=== PATIENT | female | born 1975 | race American Indian/Alaskan Native ===

== ENCOUNTER 2016-08-07 06:20 | Inpatient (IN) | payer MEDICARE ==
[2016-08-05 12:07] LABS: Basophils % (Auto) 0.4 % (0.0-1.8); Eosinophils % (Auto) 1.6 % (0.0-4.3); Hematocrit 36.8 % (30.3-42.9); Hemoglobin 12.1 gm/dl (10.1-14.3); Mean Corpuscular HGB Conc 33 % (30-34); Mean Corpuscular Hemoglobin 28 pg (28-32); Mean Corpuscular Volume 84 fl (79-97); Platelet Count 359 K/mm3 (140-440); Red Blood Count 4.39 M/mm3 (3.65-5.03); Red Cell Distribution Width 12.6 % (13.2-15.2); White Blood Count 7.1 K/mm3 (4.5-11.0)
[2016-08-05 12:17] LABS: INR 0.88 (0.87-1.13); Partial Thromboplastin Time 32.6 Sec. (24.2-36.6)
--- NOTE | 2016-08-05 12:23 | Anesthesia Consultation ---
Anesthesia Consult and Med Hx Date of service: 08/07/16 - Airway Anesthetic Teeth Evaluation: Good ROM Head & Neck: Adequate Mental/Hyoid Distance: Adequate Mallampati Class: Class II Intubation Access Assessment: Probably Good - Pulmonary Exam CTA: Yes - Cardiac Exam Cardiac Exam: RRR - Pre-Operative Health Status ASA Pre-Surgery Classification: ASA3 Proposed Anesthetic Plan: General - Cardiovascular System Hx Hypertension: Yes (x 12 yrs) - Central Nervous System Hx Psychiatric Problems: No - Endocrine Hx Liver Disease: Yes (H/O Hep A with elevated liver enzymes) Hx Insulin Dependent Diabetes: Yes - Hematic Hx Anemia: Yes (past hx) - Other Systems Hx Alcohol Use: Yes (occas) Hx Cancer: No Hx Obesity: Yes - Additional Comments Anesthesia Medical History Comments: Patient does not want TAP block
[2016-08-05 13:01] LABS: Alanine Aminotransferase 8 units/L (7-56); Albumin 3.5 g/dL (3.9-5); Albumin/Globulin Ratio 0.9 %; Alkaline Phosphatase 102 units/L (35-129); Anion Gap 14 mmol/L; BUN/Creatinine Ratio 16.15; Bilirubin,Total 0.3 mg/dL (0.1-1.2); Blood Urea Nitrogen 21 mg/dL (7-17); Calcium 8.4 mg/dL (8.4-10.2); Carbon Dioxide 28 mmol/L (22-30); Glucose 104 mg/dL (65-100); Potassium 4.2 mmol/L (3.6-5.0); Sodium 140 mmol/L (137-145); Total Protein 7.5 g/dL (6.3-8.2)
[2016-08-05 13:39] LABS: Bilirubin,Direct < 0.2 mg/dL (0-0.2)
--- NOTE | 2016-08-06 17:20 | History and Physical Report ---
History of Present Illness Date of examination: 08/05/16 Date of admission: 08/07/2016 Chief complaint: dysfunctional bleeding and uterine fibroids History of present illness: 41y/o with dysfunctional uterine bleeding and uterine fibroids. The patient attempted medical management without success. She has elected for definitive surgical management. Patient has been reassessed/reevaluated/re-examined. H&P has been reviewed. No interval changes. Past History Past Medical History: hypertension, diabetes, high cholesterol, other ( Hepatitis A; depression) Past Surgical History: section, other (tubal ligation; eye surgery) Social history: single - Obstetrical History : 3 Para: 3 Hx # Term Pregnancies: 3 Number of Pregnancies: 0 Spontaneous Abortions: 0 Induced : 0 Number of Living Children: 3 Medications and Allergies Allergies Allergy/AdvReac Type Severity Reaction Status Date / Time ciprofloxacin [From Cipro] Allergy SOB, hives Verified 08/05/16 08:44 ciprofloxacin HCl Allergy SOB, hives Verified 08/05/16 08:44 [From Cipro] Home Medications Medication Instructions Recorded Confirmed Last Taken Type Famotidine [Pepcid] 20 mg PO BID 08/05/16 08/05/16 Unknown History Insulin Detemir [Levemir Flextouch] 30 unit SQ HS 08/05/16 08/05/16 Unknown History Insulin Lispro [Humalog 100 12 units SQ AC 08/05/16 08/05/16 Unknown History UNITS/ML Kwikpen] Lisinopril [Zestril] 20 mg PO QDAY 08/05/16 08/05/16 Unknown History Metoclopramide [Reglan] 10 mg PO HS 08/05/16 08/05/16 Unknown History amLODIPine [Norvasc] 10 mg PO BID 08/05/16 08/05/16 Unknown History Active Meds: Active Medications Celecoxib (Celebrex) 200 mg PO PREOP NR Stop: 08/07/16 23:59 Famotidine (Pepcid) 20 mg PO PREOP NR Stop: 08/08/16 12:59 Fentanyl (Sublimaze) 100 mcg IV ONCE ONE Stop: 08/07/16 08:48 Gabapentin (Neurontin) 600 mg PO PREOP NR Stop: 08/07/16 23:59 Sodium Chloride (Nacl 0.9% 1000 Ml) 1,000 mls @ 125 mls/hr IV DIRECT JINA Midazolam HCl (Versed) 2 mg IV PREOP NR Stop: 08/07/16 23:59 Review of Systems All systems: negative Constitutional: fatigue Genitourinary: vaginal bleeding, pelvic pain - Vital Signs Vital signs: Vital Signs Temp Pulse Resp BP 98.8 F 76 16 148/80 08/05/16 11:35 08/05/16 11:35 08/05/16 11:35 08/05/16 11:35 Temp Pulse Resp BP Pulse Ox 98.8 F 76 16 148/80 08/05/16 11:35 08/05/16 11:35 08/05/16 11:35 08/05/16 11:35 - Physical Exam Breasts: Positive: deferred Cardiovascular: Regular rate Lungs: Positive: Clear to auscultation Abdomen: Positive: other (obese) Results Result Diagrams: 08/05/16 11:45 08/05/16 11:45 All other labs normal. Assessment and Plan - Patient Problems (1) Fibroid uterus Current Visit: Yes Status: Acute Qualifiers: Uterine leiomyoma location: U Plan to address problem: will proceed with a robotic hysterectomy (2) DUB (dysfunctional uterine bleeding) Current Visit: Yes Status: Acute
[~2016-08-07 06:20] MED LIST: ANCEF/STERILE WATER 2 GM/20 ML 2 GM/20 ML SYRINGE IV SCH; NACL 0.9% 1000 ML 1,000 ML IV SCH; PEPCID PO NR; VERSED IV NR
[2016-08-07] MEDS ORDERED: NACL BACTERIOSTATIC INFILTRATI ONE (06:40)
--- NOTE | 2016-08-07 07:13 | Anesthesia Day of Surgery ---
Anesthesia Day of Surgery - Day of Surgery Patient Examined: Yes Patient H&P Reviewed: Yes Patient is NPO: Yes
[2016-08-07] MEDS ORDERED: MARCAINE-EPI/PF 0.5%-1:200,000 INFILTRATI ONE (07:14)
[2016-08-07] MEDS ORDERED: XYLOCAINE 1% 20 mL ONE (07:15)
[2016-08-07] MEDS ORDERED: DECADRON ONE ×2 (07:16→09:02)
--- NOTE | 2016-08-07 07:24 | Admit Criteria Form ---
Admission Criteria Documentation: AMBULATORY SURGERY EXCEPTION CRITERIA Ambulatory Surgery Exception Criteria ( Place 'X' for any and all applicable criteria): Surgery or procedure performed on ambulatory basis may require inpatient stay for[A] ANY ONE of the following(1)(2)(3)(4)(5)(6)(7)(8)(9): [X] I. A preoperative situation, condition, or finding that warrants inpatient stay as indicated by ANY ONE of the following: [X] a) Inpatient care needed because of severity of a disease or condition rather than the surgery (eg, severe cardiac or respiratory disease, severe infection) (15) (16 ) (17) (18) [] b) Emergent procedure (eg, angioplasty for acute ischemia)(19) [] c) Complex surgical approach or situation as indicated by ANY ONE of the following(3): [] i) Open approach needed instead of usual endoscopic, transcatheter, or other less invasive procedure [] ii) Difficult approach because of previous operation [] iii) Airway monitoring required after open neck procedures(20)(21) [] iv) Large mass requiring unusually extensive dissection [] v) Additional complicating feature requiring inpatient care (eg, drain management)(22(23): [X] d) Major surgery in a pt with high anesthetic risk as indicated by ANY ONE of the following (2)(3)(5)(7)(8): [X] i) ASA risk class III or higher (severe systemic disease impairing function) [D] [] ii) Advanced age (eg, older than 85 years)(14)(24) [] iii) Symptomatic heart failure(25) [] iv) Symptomatic asthma or COPD(8)(21) [] v) Morbid obesity with hemodynamic or respiratory problems(20)( 21)(26)(27) [] vi) Obstructive sleep apnea(20)(21) [] vii) Former premature infants who are younger than 60 weeks [] viii) High risk for severe postoperative abnormalities (eg, severe postoperative hypocalcemia after parathyroidectomy for severe hyperparathyroidism)(27)( 28) [] ix) Unstable angina(25) [] e) Drug-related risk requiring inpatient stay as indicated by ANY ONE of the following(5)(10)(14)(32)(33) [] i) Procedure requires discontinuing drugs or other therapy (eg , antiarrhythmic medication, antiseizure medication), which necessitates inpatient observation or treatment.(18)(31) [] ii) Major surgery and high risk drug use as indicated by ANY ONE of the following: [] 1) Active abuse of cocaine or similar drug [] 2) Monoamine oxidase inhibitor use [] 3) Other drug identified as posing risk [] f) Inadequate outpatient care situation as indicated by ANY ONE of the following(5)(10)(14)(32)(33) [] i) Patient lives remote from medical facility and procedure has urgent complication potential, and temporary nearby residence cannot be arranged [] ii) Patient will have postprocedure incapacitation and inadequate assistance at home, or alternative level of care cannot be arranged. [] iii) Patient will have long general anesthesia or procedure side effect resolution time, and competent person to stay with patient on first postoperative night at home or alternative level of care cannot be arranged. []iv) Other inadequate outpatient situation that cannot be handled by other means [] II. A perioperative event, condition, or finding that warrants inpatient stay as indicated by ANY ONE of the following (1)(2)(3): [] a) Inadequate physiologic recovery: cardiovascular, respiratory, or hemodynamic status not normal or near preoperative baseline(18) [] b) Hemodynamic instability [] c) Patient not alert with near normal or baseline mental status [] d) Temperature not normal or as expected and not appropriate for outpatient treatment of condition [] e) Ambulatory or appropriate activity level status not yet achieved post procedure [E](34)(35)(36) [] f) Operative site not appropriate (eg, unexpected or excessive drainage or bleeding) [] g) Postoperative effects not resolved or adequately managed (eg, significant pain or vomiting not appropriate for outpatient or next level of care)(10)(12) [] h) Complicating features requiring inpatient care as indicated by ANY ONE of the following(37): [] i) Severe complications of procedure (eg, bowel injury, airway compromise, vascular injury,severe hemorrhage) [] ii) Extensive (eg, dissection far beyond usual scope of procedure ) or prolonged (eg, 120 minutes beyond usual) surgery needed requiring inpatient postoperative care [] iii) Conversion to an open or complex procedure that requires inpatient care (eg, open vs laparoscopic cholecystectomy, abdominal vs vaginal hysterectomy)(38) [] iv) Comorbid condition or test result identified during or post procedure that requires inpatient care (7) [] v) Malignant hyperthermia(30) [] vi) Other complicating feature requiring inpatient care(22)(23) Inpatient stay may be needed until ALL of the following are present (1)(2)(3)(4) (5)(6)(10)(14)(33)(40): []a) Physiologic recovery: cardiovascular, respiratory, and hemodynamic status normal or near preoperative baseline []b) Hemodynamic stability []c) Patient alert, with near normal or baseline mental status []d) Temperature appropriate: patient afebrile or temperature appropriate for outpt treatment of condition []e) Activity level appropriate: ambulatory or appropriate activity level post procedure []f) Operative site appropriate as indicated by ALL of the following: []i) Site dry or with expected drainage []ii) Any blood noted is as expected for procedure. []g) Postoperative effects resolved or managed as indicated by ALL of the following: []i) Pain management appropriate for outpatient (or next level of) care(10) []ii) Minimal nausea and vomiting: if present, successfully treated with oral medication(12) []iii) Headache, dizziness, or drowsiness (if present) are mild. []h) Voiding status acceptable as indicated by ANY ONE of the following: []i) Voiding spontaneously []ii) No voiding but instructions given for follow-up in 6 to 8 hours []iii) Urinary catheter in place, and instructions given for follow-up []i) Complicating features requiring inpatient care manageable at a lower level of care(37) []j) Comorbid conditions manageable at a lower level of care(37) The original [facility] [facility] [employer] [facility] content created by [employer] has been revised. The portions of the content which have been revised are identified through the use of italic text or in bold, and [facility] has neither reviewed nor approved the modified material. All other unmodified content is copyright [employer]. Please see references footnoted in the original [employer] [facility] edition 2016 Admission Criteria Met: Yes
[2016-08-07] MEDS ORDERED: XYLOCAINE MPF 2% ONE (07:34)
[2016-08-07] MEDS ORDERED: DIPRIVAN 10 MG/ML IV ONE (07:34)
[2016-08-07] MEDS ORDERED: ZEMURON IV ONE (07:34)
[2016-08-07] MEDS ORDERED: DILAUDID ONE ×2 (07:34→10:38)
[2016-08-07] MEDS ORDERED: ceFAZolin 2 GM in NACL 0.9% 100 ML IV ONE (07:37)
[2016-08-07] MEDS ORDERED: ANCEF/STERILE WATER 2 GM/20 ML 2 GM/20 ML SYRINGE IV ONE (07:42)
[2016-08-07] MEDS ORDERED: ANCEF/STERILE WATER 2 GM/20 ML 2 GM/20 ML SYRINGE IV SCH (08:00)
[2016-08-07] MEDS ORDERED: NACL 0.9% 1000 ML 1,000 ML IV SCH (08:00)
[2016-08-07] MEDS ORDERED: SUBLIMAZE IV ONE ×2 (08:00→08:47)
[2016-08-07] MEDS ORDERED: NEURONTIN PO NR ×2 (08:00→09:00)
[2016-08-07] MEDS ORDERED: PEPCID PO NR (08:00)
[2016-08-07] MEDS ORDERED: VERSED IV NR ×2 (08:00→09:00)
[2016-08-07] MEDS ORDERED: NACL 0.9% 100 ML ONE (08:49)
[2016-08-07] MEDS ORDERED: NEO SYNEPHRINE ONE (08:49)
[2016-08-07] MEDS ORDERED: DILAUDID IV PRN (08:52)
[2016-08-07] MEDS ORDERED: DEMEROL IV PRN (08:52)
[2016-08-07] MEDS ORDERED: ZOFRAN IV PRN (08:52)
[2016-08-07] MEDS ORDERED: NEOSPORIN GU IR ONE (09:00)
[2016-08-07] MEDS ORDERED: NACL 0.9% IR ONE ×2 (09:00)
[2016-08-07] MEDS ORDERED: ZOFRAN ONE (09:02)
[2016-08-07] MEDS ORDERED: ROBINUL ONE (09:02)
[2016-08-07] MEDS ORDERED: BLOXIVERZ ONE (09:02)
[2016-08-07] MEDS ORDERED: NACL 0.9% 1000 ML 1,000 ML ONE ×2 (09:17→10:43)
[2016-08-07] MEDS ORDERED: NARCAN 0.4 MG/1 ML IV PRN (09:24)
--- NOTE | 2016-08-07 09:24 | Operative Report ---
Operative Report Operative Report: Date of surgery: 08/07/2016 Preoperative diagnoses: Functional uterine bleeding; pelvic pain; dysmenorrhea Postoperative diagnoses: Same as above Procedure: Robotic hysterectomy; bilateral salpingo-oophorectomy;lysis of adhesions Surgeon: Elsa Morillo M.D. Netezza Architect: Red Zhou Anesthesia: Gen. endotracheal anesthesia Estimated blood loss: 25 mL Pathology: Uterus, cervix, bilateral tubes and ovaries Indication:-year-old 4 with a history of dysfunctional uterine bleeding and dysmenorrhea. The patient attempted medical management but hadn't no improvement of her symptoms. The patient elected to undergo definitive surgical management. Procedure: The patient was taken to the operating room and given general endotracheal anesthesia without complication. She is prepped and draped in a normal sterile fashion. A bivalve speculum was placed in the patient's vagina and a single- tooth tenaculum placed on the anterior lip of the cervix. The uterus was sounded with the uterine sound. A [employer] uterine manipulator was placed in the bivalve speculum was then removed. Attention was then turned to the patient's abdomen where a millimeter supra umbilical skin incision was then made. A Veress needle was placed and peritoneal entry was verified water-filled syringe. Insufflation of the peritoneal cavity was performed with CO2 gas. The 12 mm trocar was then placed under direct visualization. An additional 8 mm trocar was placed on the patient's left and right lateral side just opposite of the supraumbilical trocar. An additional 5 mm right lateral trocar was then placed as the accessory port. The patient was then placed in steep Trendelenburg. There was noted to be multiple omental adhesions to the anterior abdominal wall. The monopolar scissors were used in order to coagulate and transect the omental adhesions. General survey of the patient's abdomen also revealed findings of the bladder adherent to the anterior abdominal wall. These adhesions were also lysed with the monopolar scissors. The da Mikaela robot was then engaged. A fenestrated forcep was placed in arm 2 and a vessel sealer was placed in arm 1. The surgeon then transferred to the surgical console. The mesosalpinx was then isolated on the right. The vessel sealer was used to coagulate the individual pelvic ligament which was then transected. The tube and ovary were transected from its blood supply. The round ligament ligament was then coagulated and transected. The vesicouterine peritoneum was then entered from the patient's right side. The uterine vessels were then coagulated with the vessel sealer. The vessels were then transected . Attention was then turned to the patient's left side where the infundibulopelvic ligament was again isolated coagulated and transected. The vesical peritoneum was then entered from the left and joined in the midline. Peritoneum was reflected off of the lower uterine segment. Uterine vessels were then coagulated and then transected. The blood supply to the uterus was adequately contained, a posterior colpotomy was made. The V care ring was visualized. Posterior colpotomy was created with the monopolar scissors. The incision was continued circumferentially until anterior colpotomy was made. The cervix and uterus were amputated from the vaginal cuff. The uterus was then removed along with the tubes and ovaries bilaterally through the vagina and a warm laparotomy sponge was placed and maintain the pneumoperitoneum. The vaginal cuff was then closed in a running fashion with V lock suture. Irrigation of the pelvis was performed. Tisseel was applied to the incision. The supraumbilical 12 mm trocar site was closed with the Daniel Medellin device. The skin was then reapproximated with 4-0 Monocryl. The tissue was sent to pathology which included the cervix and uterus. The patient was then successfully extubated. She was then taken to the recovery room in stable condition. All sponge laps and needle counts were correct x2.
[2016-08-07] MEDS ORDERED: TYLENOL PO PRN (09:25)
[2016-08-07] MEDS ORDERED: MOTRIN PO PRN (09:25)
[2016-08-07] MEDS ORDERED: PERCOCET 5/325 PO PRN (09:25)
[2016-08-07] MEDS ORDERED: MORPHINE PCA 30MG/30ML IV SCH (10:00)
--- NOTE | 2016-08-07 10:44 | Post Anesthesia Evaluation ---
- Post Anesthesia Evaluation Patient Participated: Yes Airway Patent: Yes Stable Respiratory Function: Yes Nausea/Vomiting: No Temp > 96.8F: Yes Pain Manageable: Yes Adequeate Hydration: Yes Anesthesia Complications: No Block Receding Appropriately: Yes Patient on Ventilator: No
[2016-08-07] MEDS: TORADOL IV SCH ×3 (11:37→23:48)
[2016-08-07] MEDS ORDERED: D50W (25GM) IV PRN (16:39)
[2016-08-07] MEDS: NACL 0.9% 1000 ML 1,000 ML IV SCH (18:44)
[2016-08-07] MEDS ORDERED: LEVEMIR SUB-Q SCH (22:00)
[2016-08-08] MEDS: NACL 0.9% 1000 ML 1,000 ML IV SCH (03:51)
[2016-08-08] MEDS: TORADOL IV SCH (05:38)
[2016-08-08 06:43] LABS: Hematocrit 35.8 % (30.3-42.9); Hemoglobin 11.3 gm/dl (10.1-14.3)
--- NOTE | 2016-08-08 08:34 | Progress Note ---
Assessment and Plan - Patient Problems (1) Fibroid uterus Current Visit: Yes Status: Acute Qualifiers: Uterine leiomyoma location: U Plan to address problem: Patient doing better Discharge home once meets discharge criteria (2) DUB (dysfunctional uterine bleeding) Current Visit: Yes Status: Acute Subjective - Subjective Date of service: 08/08/16 Interval history: Patient is without any significant complaints. She is tolerating a regular diet without complication. A postoperative course is complicated by hyperglycemia. The patient was given multiple doses of her clamps in order to control her glucose levels. This morning her fasting glucose level was 94. Patient reports: appetite normal, voiding normally, pain well controlled Objective - Vital Signs Latest vital signs: Vital Signs Temp Pulse Pulse Pulse Resp BP BP 08/08/16 05:37 18 08/08/16 05:00 98.6 F 78 22 111/71 08/08/16 03:43 20 08/08/16 01:22 20 08/07/16 23:44 20 08/07/16 22:26 20 08/07/16 20:19 20 08/07/16 20:00 98.6 F 81 22 120/74 08/07/16 11:10 98.2 F 80 80 14 113/66 113/68 08/07/16 10:45 98.0 F 73 15 106/61 08/07/16 10:30 70 14 114/67 08/07/16 10:15 70 13 115/67 08/07/16 10:06 13 08/07/16 10:00 68 12 111/63 08/07/16 09:55 68 13 111/64 08/07/16 09:50 69 13 110/65 08/07/16 09:46 98.2 F 72 12 112/66 08/07/16 08:34 98.5 F 76 12 148/83 Pulse Ox 08/08/16 05:37 08/08/16 05:00 08/08/16 03:43 08/08/16 01:22 08/07/16 23:44 08/07/16 22:26 08/07/16 20:19 08/07/16 20:00 08/07/16 11:10 08/07/16 10:45 100 08/07/16 10:30 100 08/07/16 10:15 100 08/07/16 10:06 08/07/16 10:00 100 08/07/16 09:55 100 08/07/16 09:50 100 08/07/16 09:46 100 08/07/16 08:34 100 Intake and Output 08/07/16 08/08/16 08/08/16 22:59 06:59 14:59 Intake Total 900 1700 Output Total 400 2200 Balance 500 -500 Intake: IV 600 1200 NaCl 0.9% 1000 ml 1,539 334 9185 ml @ 100 mls/hr IV DIRECT JINA Rx#:[id number] NaCl 0.9% 1000 ml 1,000 400 ml @ 125 mls/hr IV DIRECT JINA Rx#:[id number] Oral 300 500 Output: Urine 400 2200 Indwelling Catheter 400 2200 Other: Total, Intake Amount 300 500 Total, Output Amount 400 800 Voiding Method Indwelling Catheter # Voids Indwelling Catheter 1 - Exam Abdomen: Present: normal appearance, soft Incision: Present: normal - Labs Labs: Abnormal lab results 08/07/16 08/07/16 08/07/16 Range/Units 09:55 16:28 18:22 POC Glucose 217 H 416 H 390 H (70-105) 08/07/16 Range/Units 21:01 POC Glucose 339 H (70-105)
--- NOTE | 2016-08-08 08:35 | Discharge Summary ---
Providers - Providers Date of Admission: 08/07/16 09:25 Date of discharge: 08/08/16 Attending physician: AMANDA CARRILLO Primary care physician: CRIS HOROWITZ Hospitalization Reason for admission: other (dysfunctional uterine bleeding; dysmenorrhea) Procedure: other (robotic hysterectomy and bilateral salpingo-oophorectomy) Incision: normal Discharge diagnosis: other (dysfunctional uterine bleeding; dysmenorrhea) Hospital course: The patient was admitted the day of surgery and underwent a robotic hysterectomy and bilateral salpingo-oophorectomy. Please see operative note for details of surgery. Postoperative course was complicated by hyperglycemia that to be controlled with regular insulin. The remainder of her hospitalization was uncomplicated. The patient was discharged home with discharge criteria. Condition at discharge: Good Disposition: DISCHARGED TO HOME OR SELFCARE - Discharge Diagnoses (1) Fibroid uterus Status: Acute Qualifiers: Uterine leiomyoma location: U (2) DUB (dysfunctional uterine bleeding) Status: Acute Plan - Discharge Medications Prescriptions: Docusate Sodium [Colace] 100 mg PO BID PRN #60 capsule PRN Reason: Constipation Ibuprofen [Motrin] 800 mg PO Q8HR PRN #60 tablet PRN Reason: Pain Oxycodone HCl/Acetaminophen [Percocet 10/325 mg] 1 each PO Q6HR PRN #45 tablet PRN Reason: Pain - Provider Discharge Summary Activity: no sex for 6 weeks, no heavy lifting 4 weeks, no strenuous exercise Diet: routine Instructions: routine Additional instructions: [] Smoking cessation referral if applicable(refer to patient education folder for contact #) [] Refer to [facility] Book[facility] Call your doctor immediately for: * Fever > 100.5 * Heavy vaginal bleeding ( >1 pad per hour) * Severe persistent headache * Shortness of breath * Reddened, hot, painful area to leg or breast * Drainage or odor from incision. * Keep incision clean and dry at all times and follow doctor's instructions regarding bathing/showering Follow-up in [address] Russell - Follow up plan
[2016-08-08 12:59] VITALS: BP 126/80
== END 2016-08-08 12:50 | disposition home or self-care (01) | DRG 743 ==
LOC: OR 06:20 → OB 09:25 → OBSVTOIN 10:42
PROVIDERS: ADMIT Obstetrics & Gynecology; ATTEND Obstetrics & Gynecology
PROC: 0UT90ZZ Resection of Uterus, Open Approach (ICD-10-PCS; principal; 2016-08-07)
PROC: 0UT70ZZ Resection of Bilateral Fallopian Tubes, Open Approach (ICD-10-PCS; 2016-08-07)
PROC: 0UT20ZZ Resection of Bilateral Ovaries, Open Approach (ICD-10-PCS; 2016-08-07)
PROC: 8E0W0CZ Robotic Assisted Procedure of Trunk Region, Open Approach (ICD-10-PCS; 2016-08-07)
PROC: 0UTC0ZZ Resection of Cervix, Open Approach (ICD-10-PCS; 2016-08-07)
DX: D25.9 Leiomyoma of uterus, unspecified (principal); N93.8 Other specified abnormal uterine and vaginal bleeding; I10 Essential (primary) hypertension; Z98.51 Tubal ligation status; Z88.1 Allergy status to other antibiotic agents
CPT/HCPCS: 36415; 64450; 80048; 80074; 82962; 84703; 85014; 85018; 85025; 85610; 85730; 86850; 86900; 86901; 88307; A4217; C9250; J0690; J1100; J1170; J1815; J1818; J1885; J2250; J2270; J2370; J2405; J2704; J2710; J3010; J7030

== ENCOUNTER 2017-12-27 16:34 | Emergency (ER) | payer MEDICARE ==
--- NOTE | 2017-12-27 17:04 | Emergency Department Report ---
ED Fall HPI - General Chief Complaint: Fall Stated Complaint: LOW RT SIDE/BACK PAIN Time Seen by Provider: 12/27/17 17:02 Source: patient, EMS Mode of arrival: Stretcher - History of Present Illness Initial Comments: Patient fell shortly prior to arrival, while at home, landing on left side, with severe pain in her left flank and left lower back. She reports she was going down a single step, slipped, fell onto her back, striking her left mid back onto the step itself, with production of patient's current severe pain in her left mid back and flank area. Pain is reported at 10 out of 10, localized mid back, sharp, as well as aching, radiates locally only towards the left flank area, none to the abdomen, no associated symptoms, no bowel or bladder symptoms, moves all extremities, but has difficulty walking secondary to the pain. Pain is not relieved by any maneuvers, but is significantly exacerbated by any attempt at movement. She has no difficulty breathing, no lightheadedness, no anterior abdomen pain, no nausea or vomiting, reports that she has significant difficulty walking, due to the severe pain in the area of her back injury. Past medical history significant primarily for type 2 diabetes mellitus, hypertension, as well as previous history of . 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 Witnessed: yes, by family Place Fall Occurred: home Loss of Consciousness: none Prolonged Down Time?: no Symptoms Prior to Fall: none Location: back Severity scale (0 -10): 10 Quality: sharp Context: tripped/slipped Associated Symptoms: denies - Related Data Home Medications Medication Instructions Recorded Confirmed Last Taken Famotidine [Pepcid] 20 mg PO BID 08/05/16 08/07/16 08/06/16 Insulin Detemir [Levemir Flextouch] 30 unit SQ HS 08/05/16 08/07/16 08/06/16 Insulin Lispro [Humalog 100 12 units SQ AC 08/05/16 08/07/16 08/06/16 UNITS/ML Kwikpen] Lisinopril [Zestril] 20 mg PO QDAY 08/05/16 08/07/16 08/07/16 Metoclopramide [Reglan] 10 mg PO HS 08/05/16 08/07/16 08/06/16 amLODIPine [Norvasc] 10 mg PO BID 08/05/16 08/07/16 08/07/16 Previous Rx's Medication Instructions Recorded Last Taken Type Docusate Sodium [Colace] 100 mg PO BID PRN #60 capsule 08/08/16 Unknown Rx Ibuprofen [Motrin] 800 mg PO Q8HR PRN #60 tablet 08/08/16 Unknown Rx Oxycodone HCl/Acetaminophen 1 each PO Q6HR PRN #45 tablet 08/08/16 Unknown Rx [Percocet 10/325 mg] Cyclobenzaprine HCl 7.5 mg PO TID PRN #21 tab 12/27/17 Unknown Rx [Cyclobenzaprine 7.5 MG TAB] HYDROcodone/APAP 7.5-325 [[place] 1 each PO Q6HR PRN #30 tablet 12/27/17 Unknown Rx 7.5/325] Allergies Allergy/AdvReac Type Severity Reaction Status Date / Time ciprofloxacin [From Cipro] Allergy SOB, hives Verified 12/27/17 17:12 ciprofloxacin HCl Allergy SOB, hives Verified 12/27/17 17:12 [From Cipro] ED Review of Systems ROS: Stated complaint: LOW RT SIDE/BACK PAIN Other details as noted in HPI Comment: All other systems reviewed and negative Constitutional: denies: chills, fever ENT: denies: throat pain Respiratory: denies: cough, shortness of breath Cardiovascular: chest pain (lower lateral chest, with movement of lower back, radiating from back) Endocrine: no symptoms reported Gastrointestinal: denies: abdominal pain, nausea, vomiting Genitourinary: denies: urgency, dysuria Musculoskeletal: back pain. denies: joint swelling, arthralgia Skin: denies: rash Neurological: denies: headache, weakness, numbness, paresthesias Hematological/Lymphatic: as per HPI ED Past Medical Hx - Past Medical History Hx Hypertension: Yes (x 12 yrs) Hx Diabetes: Yes (x 26 yrs) Hx Liver Disease: Yes (H/O Hep A with elevated liver enzymes) Hx HIV: No - Surgical History Additional Surgical History: Left Eye. x3 - Social History Smoking Status: Never Smoker Substance Use Type: None - Medications Home Medications: Home Medications Medication Instructions Recorded Confirmed Last Taken Type Famotidine [Pepcid] 20 mg PO BID 08/05/16 08/07/16 08/06/16 History Insulin Detemir [Levemir Flextouch] 30 unit SQ HS 08/05/16 08/07/16 08/06/16 History Insulin Lispro [Humalog 100 12 units SQ AC 08/05/16 08/07/16 08/06/16 History UNITS/ML Kwikpen] Lisinopril [Zestril] 20 mg PO QDAY 08/05/16 08/07/16 08/07/16 History Metoclopramide [Reglan] 10 mg PO HS 08/05/16 08/07/16 08/06/16 History amLODIPine [Norvasc] 10 mg PO BID 08/05/16 08/07/16 08/07/16 History Docusate Sodium [Colace] 100 mg PO BID PRN #60 capsule 08/08/16 Unknown Rx Ibuprofen [Motrin] 800 mg PO Q8HR PRN #60 tablet 08/08/16 Unknown Rx Oxycodone HCl/Acetaminophen 1 each PO Q6HR PRN #45 tablet 08/08/16 Unknown Rx [Percocet 10/325 mg] Cyclobenzaprine HCl 7.5 mg PO TID PRN #21 tab 12/27/17 Unknown Rx [Cyclobenzaprine 7.5 MG TAB] HYDROcodone/APAP 7.5-325 [[place] 1 each PO Q6HR PRN #30 tablet 12/27/17 Unknown Rx 7.5/325] ED Physical Exam - General Limitations: Physical Limitation General appearance: alert, in distress (from left mid lumbar back pain) - Head Head exam: Present: atraumatic, normocephalic - Eye Eye exam: Present: PERRL, EOMI - ENT ENT exam: Present: normal exam - Neck Neck exam: Present: normal inspection - Respiratory Respiratory exam: Present: normal lung sounds bilaterally, chest wall tenderness (left lateral chest wall, no crepitus, no bony instability). Absent : wheezes, rales, rhonchi - Cardiovascular Cardiovascular Exam: Present: regular rate, normal heart sounds - GI/Abdominal GI/Abdominal exam: Present: soft, normal bowel sounds, other (obese). Absent: guarding, rebound - Rectal Rectal exam: Present: deferred - Extremities Exam Extremities exam: Present: normal inspection, full ROM. Absent: pedal edema - Back Exam Back exam: Present: tenderness, paraspinal tenderness (left mid lumbar back) - Neurological Exam Neurological exam: Present: alert, oriented X3, CN II-XII intact. Absent: motor sensory deficit - Psychiatric Psychiatric exam: Present: normal affect, normal mood, agitated (secondary to discomfort) - Skin Skin exam: Present: warm, dry, intact ED Course Vital Signs 12/27/17 12/27/17 12/27/17 16:46 16:50 16:53 Temperature 36.9 C Pulse Rate 80 Respiratory 16 Rate Blood Pressure 143/71 Blood Pressure 143/71 [Right] O2 Sat by Pulse 100 100 100 Oximetry 12/27/17 12/27/17 12/27/17 17:00 17:04 17:10 Temperature Pulse Rate Respiratory Rate Blood Pressure 143/71 159/67 Blood Pressure [Right] O2 Sat by Pulse 100 100 100 Oximetry 12/27/17 17:30 Temperature Pulse Rate Respiratory Rate Blood Pressure 148/81 Blood Pressure [Right] O2 Sat by Pulse 100 Oximetry - Reevaluation(s) Reevaluation #1: 12/27/17 18:42 Patient's back pain improved after medication with morphine and ondansetron, but is having persistent and increasing left-sided abdominal pain, particularly and left lower quadrant. On my examination, patient has tenderness in the left lower quadrant, less to the left flank, nontender to palpation left upper quadrant, nontender on the right side of abdomen. Bowel sounds are present. Patient evaluation extended for possible intra-abdominal injury, CT scan of abdomen and pelvis with IV contrast ordered for evaluation of solid organ injury. Reevaluation #2: 12/27/17 21:18 Resting much more comfortably after second round of pain medicine, and on recheck has mild discomfort in left flank, but abdomen is generally benign, and we discussed the negative results of CT scan with no findings of significant intra-abdominal trauma. ED Medical Decision Making - Lab Data Result diagrams: 12/27/17 18:59 12/27/17 18:59 - Medical Decision Making Patient has a mid lumbar contusion and significant myofascial strain, but no fracture, and CT scan of the abdomen is negative for intra-abdominal trauma as well. Patient is stable for discharge home, and advised she will likely have significant pain for several days, lead rest, analgesics, as well as muscle relaxant. She'll be given work release for the next week, which should have recheck within a week, as she is likely going to be stiff for 2 or 3 weeks in any case. - Differential Diagnosis back strain, lumbar fracture, contusion, intra-abdominal trauma Critical Care Time: No Critical care attestation.: If time is entered above; I have spent that time in minutes in the direct care of this critically ill patient, excluding procedure time. ED Disposition Clinical Impression: Lumbar contusion Qualifiers: Encounter type: initial encounter Qualified Code(s): S30.0XXA - Contusion of lower back and pelvis, initial encounter Disposition: TO HOME OR SELFCARE Is pt being admited?: No Does the pt Need Aspirin: No Condition: Stable Instructions: Low Back Strain (ED) Prescriptions: Cyclobenzaprine HCl [Cyclobenzaprine 7.5 MG TAB] 7.5 mg PO TID PRN #21 tab PRN Reason: Spasms HYDROcodone/APAP 7.5-325 [[place] 7.5/325] 1 each PO Q6HR PRN #30 tablet PRN Reason: Pain Forms: Work/School Release Form(ED) Time of Disposition: 21:23
[2017-12-27] MEDS ORDERED: MORPHINE IV ONE ×2 (17:07→19:18)
[2017-12-27] MEDS ORDERED: COMPAZINE IV ONE (17:08)
[2017-12-27] MEDS ORDERED: ZOFRAN ONE (17:25)
[2017-12-27] MEDS ORDERED: ZOFRAN IV ONE ×2 (17:37→19:18)
[2017-12-27 17:47] VITALS: BP 148/81
--- NOTE | 2017-12-27 18:42 | XRay Report ---
FINAL REPORT EXAM: XR SPINE LUMBOSACRAL 2-3V HISTORY: fall on stairs, left lumbar back pain TECHNIQUE: 2 views of the lumbar spine PRIORS: None. FINDINGS: Vertebral compression fracture: None Anterolisthesis: None Retrolisthesis: None Disc narrowing: None Degenerative change: Slight at the lower facet joints IMPRESSION: No acute skeletal pathology
[2017-12-27] MEDS ORDERED: NACL 0.9% 1000 ML 1,000 ML IV ONE (18:43)
--- NOTE | 2017-12-27 18:44 | XRay Report ---
FINAL REPORT EXAM: XR RIBS UNI W PA CHEST 3+V LT HISTORY: fall on stairs, left flank, lower chest pain TECHNIQUE: Frontal view of the chest Left rib examination PRIORS: None. FINDINGS: Limited examination due to prominent soft tissue attenuation. There is no evidence of acute displaced rib fracture. The ribs are partly obscured by superimposed anatomy. There is no pneumothorax, pulmonary consolidation to suggest contusion, or pleural effusion in the visualized chest. IMPRESSION: No radiographic evidence of visible acute displaced rib fracture
[2017-12-27 19:22] LABS: Hematocrit 37.6 % (30.3-42.9); Hemoglobin 11.9 gm/dl (10.1-14.3); Mean Corpuscular HGB Conc 32 % (30-34); Mean Corpuscular Hemoglobin 26 pg (28-32); Mean Corpuscular Volume 83 fl (79-97); Platelet Count 385 K/mm3 (140-440); Red Blood Count 4.53 M/mm3 (3.65-5.03); Red Cell Distribution Width 12.7 % (13.2-15.2)
[2017-12-27 19:48] LABS: Calcium 10.4 mg/dL (8.4-10.2)
[2017-12-27 20:03] LABS: Bilirubin,Urine NEG (Negative); Blood,Urine NEG (Negative); Color,Urine Yellow (Yellow); Mucus,Urine FEW /HPF; Urobilinogen,Urine < 2.0 mg/dL (<2.0)
--- NOTE | 2017-12-27 20:58 | Cat Scan Report ---
FINAL REPORT PROCEDURE: CT ABDOMEN PELVIS WO CON TECHNIQUE: Computerized axial tomography of the abdomen and pelvis was performed without intravenous contrast. This study is performed without intravascular contrast material and its sensitivity for abdominal and pelvic pathology, including neoplasms, inflammation, abscess, free fluid, organ laceration, thrombosis, arterial dissection and infarction, is reduced compared with a contrast enhanced study. HISTORY: eval intraabd inj; Left Abd Pain, ground level fall COMPARISON: No prior studies are available for comparison. FINDINGS: Lower Lung bowers: No focal abnormality seen. Upper Abdomen: The liver, gallbladder, adrenal glands, unenhanced images of the pancreas and spleen are unremarkable. Kidneys, Ureters and Urinary bladder: Kidneys and ureters are unremarkable. Mcmanus catheter is seen in the urinary bladder which is nearly empty and difficult to evaluate. No gross abnormality is seen. Retroperitoneum: Abdominal aorta appears normal. No retroperitoneal hemorrhage visualized. Nonspecific subcentimeter lymph nodes are seen in the retroperitoneum. No pathologically enlarged lymph nodes are identified. Bowel: Bowel loops are unremarkable. No evidence of bowel obstruction ascites or free intraperitoneal gas. No abnormal fluid collections are identified. Normal-appearing appendix is seen in the right lower quadrant. Reproductive organs: Uterus is surgically absent. No abnormal adnexal masses are identified. Other: No acute bony abnormalities are visualized. IMPRESSION: No acute or focal abnormality are identified. Prior hysterectomy..
== END 2017-12-27 22:02 | disposition home or self-care (01) ==
LOC: ED 16:34
DX: S30.0XXA Contusion of lower back and pelvis, initial encounter (principal); I10 Essential (primary) hypertension; E11.9 Type 2 diabetes mellitus without complications; Z79.4 Long term (current) use of insulin; Z88.1 Allergy status to other antibiotic agents; W10.9XXA Fall (on) (from) unspecified stairs and steps, initial encounter; Y93.89 Activity, other specified; Y99.8 Other external cause status; Y92.098 Other place in other non-institutional residence as the place of occurrence of the external cause
CPT/HCPCS: 36415; 51702; 71101; 72100; 74176; 80053; 81001; 83690; 85027; 96374; 96375; 96376; 99285; J2270; J2405; J7030; J0780

== ENCOUNTER 2018-07-26 17:55 | Emergency (ER) | payer MEDICARE ==
[2018-07-26 18:15] VITALS: BP 151/88
== END 2018-07-26 20:35 | disposition left against medical advice (07) ==
LOC: ED 17:55
DX: R07.89 Other chest pain (principal); Z53.21 Procedure and treatment not carried out due to patient leaving prior to being seen by health care provider
CPT/HCPCS: 93005; 93010

== ENCOUNTER 2018-10-03 22:09 | Inpatient (IN) | payer MEDICARE ==
[2018-10-03] MEDS ORDERED: MORPHINE IV ONE (22:56)
--- NOTE | 2018-10-03 23:00 | Emergency Department Report ---
ED Lower Extremity HPI - General Stated Complaint: RIGHT KNEE PAIN Time Seen by Provider: 10/03/18 22:54 - History of Present Illness Initial Comments: 43-year-old female states she was sitting in a chair when she fell through the chair. Patient states somehow she hurt her right knee during the fall. Patient reports she is unable to move it secondary to pain. Denies numbness or tingling in leg or toes. MD Complaint: knee injury -: This evening Injury: Knee: Right Type of Injury: unknown Severity: severe Improves With: immobilization Worsens With: movement Context: fall Associated Symptoms: unable to bear weight - Related Data Home Medications Medication Instructions Recorded Confirmed Last Taken Famotidine [Pepcid] 20 mg PO BID 08/05/16 08/07/16 08/06/16 Insulin Detemir [Levemir Flextouch] 30 unit SQ HS 08/05/16 08/07/16 08/06/16 Insulin Lispro [Humalog 100 12 units SQ AC 08/05/16 08/07/16 08/06/16 UNITS/ML Kwikpen] Lisinopril [Zestril] 20 mg PO QDAY 08/05/16 08/07/16 08/07/16 Metoclopramide [Reglan] 10 mg PO HS 08/05/16 08/07/16 08/06/16 amLODIPine [Norvasc] 10 mg PO BID 08/05/16 08/07/16 08/07/16 Previous Rx's Medication Instructions Recorded Last Taken Type Docusate Sodium [Colace] 100 mg PO BID PRN #60 capsule 08/08/16 Unknown Rx Ibuprofen [Motrin] 800 mg PO Q8HR PRN #60 tablet 08/08/16 Unknown Rx Oxycodone HCl/Acetaminophen 1 each PO Q6HR PRN #45 tablet 08/08/16 Unknown Rx [Percocet 10/325 mg] Cyclobenzaprine HCl 7.5 mg PO TID PRN #21 tab 12/27/17 Unknown Rx [Cyclobenzaprine 7.5 MG TAB] HYDROcodone/APAP 7.5-325 [[place] 1 each PO Q6HR PRN #30 tablet 12/27/17 Unknown Rx 7.5/325] Allergies Allergy/AdvReac Type Severity Reaction Status Date / Time ciprofloxacin [From Cipro] Allergy SOB, hives Verified 12/27/17 17:12 ciprofloxacin HCl Allergy SOB, hives Verified 12/27/17 17:12 [From Cipro] ED Review of Systems ROS: Stated complaint: RIGHT KNEE PAIN Other details as noted in HPI Comment: All other systems reviewed and negative Musculoskeletal: as per HPI Neurological: denies: numbness, paresthesias ED Past Medical Hx - Past Medical History Hx Hypertension: Yes (x 12 yrs) Hx Diabetes: Yes (x 26 yrs) Hx Liver Disease: Yes (H/O Hep A with elevated liver enzymes) Hx Renal Disease: Yes Hx HIV: No - Surgical History Additional Surgical History: Left Eye. x3 - Social History Smoking Status: Never Smoker Substance Use Type: None - Medications Home Medications: Home Medications Medication Instructions Recorded Confirmed Last Taken Type Famotidine [Pepcid] 20 mg PO BID 08/05/16 08/07/16 08/06/16 History Insulin Detemir [Levemir Flextouch] 30 unit SQ HS 08/05/16 08/07/16 08/06/16 History Insulin Lispro [Humalog 100 12 units SQ AC 08/05/16 08/07/16 08/06/16 History UNITS/ML Kwikpen] Lisinopril [Zestril] 20 mg PO QDAY 08/05/16 08/07/16 08/07/16 History Metoclopramide [Reglan] 10 mg PO HS 08/05/16 08/07/16 08/06/16 History amLODIPine [Norvasc] 10 mg PO BID 08/05/16 08/07/16 08/07/16 History Docusate Sodium [Colace] 100 mg PO BID PRN #60 capsule 08/08/16 Unknown Rx Ibuprofen [Motrin] 800 mg PO Q8HR PRN #60 tablet 08/08/16 Unknown Rx Oxycodone HCl/Acetaminophen 1 each PO Q6HR PRN #45 tablet 08/08/16 Unknown Rx [Percocet 10/325 mg] Cyclobenzaprine HCl 7.5 mg PO TID PRN #21 tab 12/27/17 Unknown Rx [Cyclobenzaprine 7.5 MG TAB] HYDROcodone/APAP 7.5-325 [[place] 1 each PO Q6HR PRN #30 tablet 12/27/17 Unknown Rx 7.5/325] ED Physical Exam - General General appearance: alert, in no apparent distress, obese - Head Head exam: Present: atraumatic, normocephalic - Eye Eye exam: Present: normal appearance - ENT ENT exam: Present: mucous membranes moist - Neck Neck exam: Present: normal inspection - Respiratory Respiratory exam: Present: normal lung sounds bilaterally. Absent: respiratory distress - Cardiovascular Cardiovascular Exam: Present: regular rate, normal rhythm - GI/Abdominal GI/Abdominal exam: Absent: distended - Extremities Exam Extremities exam: Present: other (tenderness to medial aspect of right knee; no obvious swelling noted; slight deformity noted; unbale to flex/extend the knee; able to wiggle toes on right foot; cap refill nml; DP pulses normal) - Neurological Exam Neurological exam: Present: alert, oriented X3. Absent: motor sensory deficit - Psychiatric Psychiatric exam: Present: normal affect, normal mood - Skin Skin exam: Present: warm, dry, intact, normal color ED Course Vital Signs 10/03/18 10/03/18 23:31 23:36 Temperature 98.6 F Pulse Rate 89 Respiratory 18 18 Rate Blood Pressure 135/85 [Left] O2 Sat by Pulse 100 Oximetry - Consultations Consultation #1: 10/04/18 01:21 Spoke w/ Dr Diaz. Will see pt. ED Lower Extremity MDM - Lab Data Result diagrams: 10/04/18 00:20 10/04/18 00:20 - Radiology Data Radiology results: report reviewed, image reviewed - Medical Decision Making - tibial plateau and prox fibula fxs - neurovascularly intact - spoke w/ Dr Diaz, will see pt - Differential Diagnosis fracture, dislocation, sprain Critical care attestation.: If time is entered above; I have spent that time in minutes in the direct care of this critically ill patient, excluding procedure time. ED Disposition Clinical Impression: Fracture of right tibial plateau, Fracture of right proximal fibula Disposition: OP ADMIT IP TO THIS HOSP Is pt being admited?: Yes Condition: Stable Referrals: LUIS VEGA MD [Primary Care Provider] - 3-5 Days Time of Disposition: 01:22
[2018-10-04 00:33] LABS: Basophils # (Auto) 0.1 K/mm3 (0.0-0.1); Basophils % (Auto) 0.9 % (0.0-1.8); Eosinophils # (Auto) 0.1 K/mm3 (0.0-0.4); Eosinophils % (Auto) 1.5 % (0.0-4.3); Hematocrit 36.5 % (30.3-42.9); Lymphocytes # (Auto) 1.8 K/mm3 (1.2-5.4); Lymphocytes % (Auto) 23.9 % (13.4-35.0); Mean Corpuscular HGB Conc 33 % (30-34); Mean Corpuscular Volume 83 fl (79-97); Monocytes # (Auto) 0.6 K/mm3 (0.0-0.8); Monocytes % (Auto) 7.5 % (0.0-7.3); Platelet Count 332 K/mm3 (140-440); Red Blood Count 4.38 M/mm3 (3.65-5.03); Red Cell Distribution Width 13.5 % (13.2-15.2)
[2018-10-04 00:43] LABS: Calcium 10.2 mg/dL (8.4-10.2)
[2018-10-04 00:44] LABS: INR 0.88 (0.87-1.13)
[2018-10-04 00:45] LABS: Partial Thromboplastin Time 30.9 Sec. (24.2-36.6)
--- NOTE | 2018-10-04 01:17 | XRay Report ---
PROCEDURE: RIGHT KNEE 3 VIEWS TECHNIQUE: RIGHT knee radiographs, AP, lateral, and sunrise views. CPT 38713 HISTORY: Trauma COMPARISONS: None . FINDINGS: Fracture (s) and/or Dislocation(s): There is a displaced fracture of the proximal fibula. There is a depressed fracture of the lateral tibial plateau. The femur is intact. The patella is intact. There is no joint dislocation. . Alignment: Normal . Joint space(s): Normal . Soft tissues: There is a small joint effusion. . Bone mineralization: Normal . Foreign bodies: None . IMPRESSION: There is a displaced fracture of the proximal fibula. There is a depressed fracture of the lateral tibial plateau. There is a small joint effusion. This document is electronically signed by Isael Brown MD., October 04 2018 01:16:06 AM ET
[2018-10-04 01:29] LABS: Bacteria,Urine 1+ /HPF (Negative); Bilirubin,Urine NEG (Negative); Blood,Urine NEG (Negative); Color,Urine Straw (Yellow); Urobilinogen,Urine < 2.0 mg/dL (<2.0)
[2018-10-04 01:34] LABS: HCG Qualitative,Urine Negative (Negative)
[2018-10-04] MEDS ORDERED: MORPHINE ONE ×2 (01:41→06:57)
[2018-10-04] MEDS ORDERED: SODIUM CHLORIDE FLUSH SYRINGE 10 ML IV PRN (01:56)
[2018-10-04] MEDS ORDERED: D50W (25GM) Syringe IV PRN (01:56)
--- NOTE | 2018-10-04 02:12 | History and Physical Report ---
History of Present Illness Date of examination: 10/04/18 History of present illness: 43-year-old woman history of hypertension, diabetes, chronic kidney disease, gastroparesis, hyperlipidemia, glaucoma, chronically elevated LFTs comes emergency room complaining of left leg pain. Patient states she was standing on the chair putting up curtains, she felt through the chair and then developed pain Review of systems Constitutional: no weight loss, chills, fever Ears, eyes, nose, mouth and throat: no nasal congestion, no nasal discharge, no sinus pressure, no vision change, no red eye. Neck: No neck pain or rigidity. Cardiovascular: no palpitations, chest pain Respiratory: no cough, shortness of breath Gastrointestinal: no hematochezia, abdominal pain Genitourinary : no frequency , no hematuria Musculoskeletal: no joint swelling or muscle ache Integumentary: no rash, no pruritis Neurological: no parathesias, no focal weakness Endocrine: no cold or heat intolerance, no polyuria or polydipsia Hematologic/Lymphatic: no easy bruising, no easy bleeding, no gland swelling Allergic/Immunologic: no urticaria, no angioedema. PAST MEDICAL HISTORY:hypertension, diabetes, chronic kidney disease, gastroparesis, hyperlipidemia, glaucoma PAST SURGICAL HISTORY: Hysterectomy, , left SOCIAL HISTORY: Denies alcohol, drugs, tobacco FAMILY HISTORY: Hypertension Medications and Allergies Allergies Allergy/AdvReac Type Severity Reaction Status Date / Time ciprofloxacin [From Cipro] Allergy SOB, hives Verified 12/27/17 17:12 ciprofloxacin HCl Allergy SOB, hives Verified 12/27/17 17:12 [From Cipro] Home Medications Medication Instructions Recorded Confirmed Last Taken Type Famotidine [Pepcid] 20 mg PO BID 08/05/16 08/07/16 08/06/16 History Insulin Detemir [Levemir Flextouch] 30 unit SQ HS 08/05/16 08/07/16 08/06/16 History Insulin Lispro [Humalog 100 12 units SQ AC 08/05/16 08/07/16 08/06/16 History UNITS/ML Kwikpen] Lisinopril [Zestril] 20 mg PO QDAY 08/05/16 08/07/16 08/07/16 History Metoclopramide [Reglan] 10 mg PO HS 08/05/16 08/07/16 08/06/16 History amLODIPine [Norvasc] 10 mg PO BID 08/05/16 08/07/16 08/07/16 History Docusate Sodium [Colace] 100 mg PO BID PRN #60 capsule 08/08/16 Unknown Rx Ibuprofen [Motrin] 800 mg PO Q8HR PRN #60 tablet 08/08/16 Unknown Rx Oxycodone HCl/Acetaminophen 1 each PO Q6HR PRN #45 tablet 08/08/16 Unknown Rx [Percocet 10/325 mg] Cyclobenzaprine HCl 7.5 mg PO TID PRN #21 tab 12/27/17 Unknown Rx [Cyclobenzaprine 7.5 MG TAB] HYDROcodone/APAP 7.5-325 [[place] 1 each PO Q6HR PRN #30 tablet 12/27/17 Unknown Rx 7.5/325] Exam - Physical Exam Narrative exam: General Apperance: The patient lying in bed, breathing comfortable HEENT: Normocephalic, atraumatic. Pupils equally round and reactive to light, EOMI, no sclericterus or JVD or thyromegaly or nodule. , no carotid bruit, mucous membranes moist, no exudate or erythema Heart: S1-S2, regular is rhythm Lungs: Clear to auscultation bilaterally, breathing comfortable Abdomen: Positive bowel sounds, soft, nontender, nondistended, no organomegaly Extremities: Left knee swollen No edema cyanosis clubbing Skin: no rash, nodule, warm and dry Neuro: cranial nerves 2-12 intact, speech is fluent, sensory intact - Constitutional Vitals: Temp Pulse Resp BP Pulse Ox 98.6 F 89 18 135/85 100 10/03/18 23:31 10/03/18 23:31 10/03/18 23:36 10/03/18 23:31 10/03/18 23:31 Results - Labs CBC & Chem 7: 10/04/18 04:23 10/04/18 04:23 Labs: Abnormal lab results 10/04/18 10/04/18 Range/Units 00:20 00:20 MCH 27 L (28-32) pg [place] % (Auto) 7.5 H (0.0-7.3) % BUN 22 H (7-17) mg/dL Creatinine 1.6 H (0.7-1.2) mg/dL Glucose 200 H (65-100) mg/dL Assessment and Plan X-ray and CT of lower extremity Assessment Tibial plateau, fibula fracture hypertension diabetes, chronic kidney disease gastroparesis hyperlipidemia glaucoma Plan Admit to medicine Nothing by mouth, IV fluids, consult surgery Jason Wu initiate insulin sliding scale, IV morphine Continue appropriate outpatient medications DVT prophylaxis Follow-up medication reconciliation
--- NOTE | 2018-10-04 02:40 | Cat Scan Report ---
PROCEDURE: CT LOWER EXTREMITY RT WO CON HISTORY: tibial plateau fx FINDINGS: Unenhanced CT of the right knee was performed and data was reformatted in the sagittal and coronal planes. There is a comminuted fracture of the lateral tibial plateau the central tibial plateau, with lateral plateau depression of approximately 0.8 cm. The major lateral plateau fracture fragment is laterally displaced by 1 cm. The fracture line extends subjacent to the tibial spines. The medial tibial plateau appears intact. There is a comminuted nondisplaced fracture of the fibular head and neck. The distal femur and patella appear intact. There is lipohemarthrosis. IMPRESSION: Comminuted fracture of lateral tibial plateau and central tibial plateau Comminuted fracture of the fibular head and neck This document is electronically signed by Lauri Landon MD., October 04 2018 02:38:45 AM ET
[2018-10-04 05:00] LABS: Basophils % (Auto) 0.4 % (0.0-1.8); Eosinophils # (Auto) 0.1 K/mm3 (0.0-0.4); Eosinophils % (Auto) 0.9 % (0.0-4.3); Hematocrit 35.3 % (30.3-42.9); Hemoglobin 11.5 gm/dl (10.1-14.3); Lymphocytes # (Auto) 1.3 K/mm3 (1.2-5.4); Lymphocytes % (Auto) 14.7 % (13.4-35.0); Mean Corpuscular HGB Conc 33 % (30-34); Mean Corpuscular Volume 83 fl (79-97); Monocytes # (Auto) 0.8 K/mm3 (0.0-0.8); Monocytes % (Auto) 8.6 % (0.0-7.3); Platelet Count 304 K/mm3 (140-440); Red Blood Count 4.26 M/mm3 (3.65-5.03); Red Cell Distribution Width 13.2 % (13.2-15.2)
[2018-10-04 05:10] LABS: INR 0.89 (0.87-1.13); Partial Thromboplastin Time 28.3 Sec. (24.2-36.6)
[2018-10-04 05:23] LABS: Calcium 10.2 mg/dL (8.4-10.2)
[2018-10-04] MEDS: HumaLOG SUB-Q SCH ×4 (07:18→17:39)
[2018-10-04] MEDS ORDERED: HumaLOG SUB-Q ONE (08:55)
[2018-10-04] MEDS: NACL 0.45% 1000 ML 1,000 ML IV SCH (10:27)
[2018-10-04] MEDS: MORPHINE IV PRN ×3 (10:28→22:03)
[2018-10-04] MEDS: SODIUM CHLORIDE FLUSH SYRINGE 10 ML IV SCH ×2 (10:30→22:04)
[2018-10-04] MEDS: LOVENOX SUB-Q SCH (10:30)
[2018-10-04] MEDS: ZOFRAN IV PRN ×3 (10:40→22:04)
--- NOTE | 2018-10-04 15:05 | Event Note ---
Date: 10/04/18 Patient seen and reevaluated Medications reviewed
[2018-10-05] MEDS: HumaLOG SUB-Q SCH ×4 (00:03→17:00)
[2018-10-05] MEDS: ZOFRAN IV PRN ×3 (02:11→10:40)
[2018-10-05] MEDS: MORPHINE IV PRN ×3 (02:11→10:39)
[2018-10-05] MEDS: NACL 0.45% 1000 ML 1,000 ML IV SCH ×2 (02:16→10:46)
[2018-10-05] MEDS: LOVENOX SUB-Q SCH (10:38)
[2018-10-05] MEDS: SODIUM CHLORIDE FLUSH SYRINGE 10 ML IV SCH (10:47)
[2018-10-05] MEDS ORDERED: XYLOCAINE MPF 2% ONE (11:23)
[2018-10-05] MEDS ORDERED: DILAUDID ONE (11:24)
[2018-10-05] MEDS ORDERED: DIPRIVAN 10 MG/ML IV ONE (11:24)
[2018-10-05] MEDS ORDERED: KETALAR ONE (11:28)
[2018-10-05] MEDS ORDERED: NACL 0.9% 1000 ML 1,000 ML ONE (12:23)
[2018-10-05] MEDS ORDERED: VERSED ONE (12:26)
--- NOTE | 2018-10-05 12:28 | Anesthesia Day of Surgery ---
Anesthesia Day of Surgery - Day of Surgery Patient Examined: Yes Patient H&P Reviewed: Yes Patient is NPO: Yes Beta Blockers: Yes Cardiac Clearance: No Pulmonary Clearance: No Asim's Test: N/A
--- NOTE | 2018-10-05 12:29 | Anesthesia Consultation ---
Anesthesia Consult and Med Hx - Airway Anesthetic Teeth Evaluation: Good ROM Head & Neck: Adequate Mental/Hyoid Distance: Adequate Mallampati Class: Class III Intubation Access Assessment: Probably Good - Pulmonary Exam CTA: Yes - Cardiac Exam Cardiac Exam: RRR - Pre-Operative Health Status ASA Pre-Surgery Classification: ASA3 - Cardiovascular System Hx Hypertension: Yes - Central Nervous System Hx Psychiatric Problems: No - Gastrointestinal Hx Gastroesophageal Reflux Disease: Yes (H/O gastroparesis) - Endocrine Hx Renal Disease: Yes Hx Liver Disease: Yes (H/O Hep A with elevated liver enzymes) Hx Insulin Dependent Diabetes: Yes - Hematic Hx Anemia: Yes (past hx) - Other Systems Hx Alcohol Use: Yes (occas) Hx Cancer: No Hx Obesity: Yes
[2018-10-05] MEDS ORDERED: PEPCID IV ONE (12:38)
[2018-10-05] MEDS ORDERED: VERSED IV NR (13:00)
[2018-10-05] MEDS ORDERED: PEPCID PO NR (13:00)
[2018-10-05] MEDS ORDERED: ANCEF/STERILE WATER 2 GM/20 ML IV NR (13:00)
[2018-10-05] MEDS ORDERED: MARCAINE 0.5% INFILTRATI ONE ×2 (13:40→14:26)
[2018-10-05] MEDS ORDERED: TORADOL IV ONE (13:40)
[2018-10-05] MEDS ORDERED: NACL 0.9% 250ML IV ONE ×2 (13:40)
[2018-10-05] MEDS ORDERED: MORPHINE IM ONE (13:40)
[2018-10-05] MEDS ORDERED: NACL 0.9% 250ML 250 ML ONE ×2 (14:26→14:27)
[2018-10-05] MEDS ORDERED: TORADOL ONE (14:26)
[2018-10-05] MEDS ORDERED: MORPHINE ONE (14:27)
[2018-10-05] MEDS ORDERED: MORPHINE IV PRN (16:22)
[2018-10-05] MEDS ORDERED: HumaLOG SUB-Q ONE (16:23)
--- NOTE | 2018-10-05 16:38 | Procedure Note ---
Date of procedure: 10/05/18 Pre-op diagnosis: displaced right lateral tibial plateau fracture Post-op diagnosis: same Procedure: Open reduction internal fixation right lateral tibial plateau fracture with allograft bone Procedure The patient was brought to the OR and placed in the OR table in supine position following induction and intubation by anesthesia the patient's right lower extremity was prepped and draped in the usual sterile manner.A timeout procedure was done to identify the patient and the correct operative site. The leg was exsanguinated followed by inflation of the pneumatic tourniquet to 300 mmHg An incision was made along the lateral border of the tibial crest spine this is then taken up approximately towards the joint line and slightly posterior incision was then carried down through skin and subcutaneous next a fascia overlying the anterior compartment was incised the periosteum was then removed from the fracture site next using some manipulation the fracture was inspected patient was noted to have a depressed and dislocated R is the tibia on further inspection the patient didn't appear to compress and lose some bone mass directly underneath the articular surface using allograft bone this was then packed into the fracture site under C-arm visualization a a 9 hole lateral locked plate was applied to the surface of the tibia A combination of locked and unlocked screws were applied care was taken to measure and record lengths and sizes of the fixation screws and AP and lateral view was obtained showing good reduction of the fracture and placement of the hardware next the wound was copiously irrigated and was closed in a standard routine fashion. Dressings were applied patient was placed into a knee immobilizer she tolerated the procedure there were no complications Anesthesia: GETA Surgeon: YENNY MIRANDA Estimated blood loss: 50-100ml Pathology: none Condition: stable Disposition: PACU
--- NOTE | 2018-10-05 16:43 | Consultation ---
History of Present Illness - [facility] Consult date: 10/05/18 Consult reason: fracture History of present illness: 43-year-old female who comes in complaining of right knee pain and swelling patient states she was pain some curtains at home while standing on a folding chair patient loss of balance and fell patient complained of immediate onset of pain and swelling and inability to bear full weight on this extremity she was seen shortly afterwards in the emergency room at [facility] where x-rays were taken revealing a fracture of the proximal tibia Past History Past Medical History: diabetes, hypertension, hyperlipidemia Medications and Allergies Allergies Allergy/AdvReac Type Severity Reaction Status Date / Time ciprofloxacin [From Cipro] Allergy SOB, hives Verified 12/27/17 17:12 ciprofloxacin HCl Allergy SOB, hives Verified 12/27/17 17:12 [From Cipro] Home Medications Medication Instructions Recorded Confirmed Last Taken Type Adult Low Dose Aspirin EC 81 mg PO QAM 10/04/18 10/04/18 Unknown History Atorvastatin 20 mg PO QAM 10/04/18 10/04/18 Unknown History Famotidine [Pepcid] 20 mg PO BID 10/04/18 10/04/18 Unknown History Hydrochlorothiazide 12.5 mg PO QAM 10/04/18 10/04/18 Unknown History Lisinopril 10 mg PO QAM 10/04/18 10/04/18 Unknown History Norvasc 10 mg PO BID 10/04/18 10/04/18 Unknown History Multivitamin Tablet 1 tab PO QAM 10/04/18 10/04/18 Unknown History Reglan TAB 10 mg PO QAM 10/04/18 10/04/18 Unknown History Vitamin D3 1,000 UNIT TAB 2,000 units PO QAM 10/04/18 10/04/18 Unknown History Active Meds: Active Medications Acetaminophen (Tylenol) 650 mg PO Q4H PRN PRN Reason: Pain MILD(1-3)/Fever >100.5/YATES Cefazolin Sodium (Ancef/Sterile Water 2 Gm/20 Ml) 2 gm IV PREOP NR Stop: 10/05/18 23:59 Dextrose (D50w (25gm) Syringe) 50 ml IV PRN PRN PRN Reason: Hypoglycemia Enoxaparin Sodium (Lovenox) 40 mg SUB-Q QDAY JINA Last Admin: 10/05/18 10:38 Dose: Not Given Documented by: Famotidine (Pepcid) 20 mg PO PREOP NR Stop: 10/05/18 23:59 Sodium Chloride (Nacl 0.9% 1000 Ml) 1,000 mls @ 75 mls/hr IV DIRECT JINA Insulin Human Lispro (Humalog) 0 unit SUB-Q Q6HR [facility]; Protocol Last Admin: 10/05/18 12:30 Dose: Not Given Documented by: Midazolam HCl (Versed) 2 mg IV PREOP NR Stop: 10/05/18 23:59 Morphine Sulfate (Morphine) 4 mg IV Q4H PRN PRN Reason: Pain , Severe (7-10) Ondansetron HCl (Zofran) 4 mg IV Q4H PRN PRN Reason: Nausea And Vomiting Last Admin: 10/05/18 10:40 Dose: 4 mg Documented by: Oxycodone/Acetaminophen (Percocet 5/325) 1 tab PO Q6H PRN PRN Reason: Pain, Moderate (4-6) Sodium Chloride (Sodium Chloride Flush Syringe 10 Ml) 10 ml IV BID JINA Last Admin: 10/05/18 10:47 Dose: 10 ml Documented by: Sodium Chloride (Sodium Chloride Flush Syringe 10 Ml) 10 ml IV PRN PRN PRN Reason: LINE FLUSH Sodium Chloride (Sodium Chloride Flush Syringe 10 Ml) 10 ml IV PRN NR Stop: 10/06/18 16:59 Physical Examination - Physical exam Narrative exam: On physical examination significant musculoskeletal findings relates to the right lower extremity. She is noted to have moderate swelling along the right knee proximal tibia there was tenderness over the lateral border there is no obvious deformity skin is intact active range of motion is decreased secondary to pain patient has good capillary refill Eyes: PERRL ENT: Positive: clear oral mucosa Respiratory effort: normal Respiratory: bilateral: CTA Rhythm: regular Heart Sounds: Positive: S1 & S2 General gastrointestinal: Positive: soft, non-tender, non-distended, normal bowel sounds Integumentary: clear, warm, dry Neurologic: Positive: CNII-XII intact, moves all extremities, gait normal. Negative: focal deficits - Cervical Spine Neck pain: none Tenderness with palpation: none Full ROM: yes ROM: flexion: normal ROM: extension: normal ROM: rotation right: normal ROM: rotation left: normal ROM: lateral flexion right: normal ROM: lateral flexion left: normal - Lumbar Spine Back pain: none Tenderness with palpation: none Appearance: normal Full ROM: yes ROM: flexion: normal ROM: extension: normal ROM: rotation right: normal ROM: rotation left: normal ROM: lateral flexion right: normal ROM: lateral flexion left: normal Assessment and Plan Assessment displaced right lateral tibial plateau fracture Recommendations -open reduction and internal fixation right lateral tibial plateau more likely require bone grafting as well
[2018-10-05] MEDS ORDERED: SODIUM CHLORIDE FLUSH SYRINGE 10 ML IV NR (17:00)
--- NOTE | 2018-10-05 18:29 | Progress Note ---
Assessment and Plan - Patient Problems (1) Fracture of right proximal fibula Current Visit: Yes Status: Acute Qualifiers: Fracture type: closed Plan to address problem: Had ORIF of Tibial fracture today Open reduction internal fixation right lateral tibial plateau fracture with allograft bone (2) Fracture of right tibial plateau Current Visit: Yes Status: Acute Qualifiers: Encounter type: initial encounter Fracture type: closed Qualified Code(s): S82.141A - Displaced bicondylar fracture of right tibia, initial encounter for closed fracture Plan to address problem: Displaced fratue of proximal fibula Will d/w Dr Diaz (3) HTN (hypertension) Current Visit: Yes Status: Chronic Qualifiers: Hypertension type: essential hypertension Qualified Code(s): I10 - Essential (primary) hypertension Plan to address problem: Cont antihypertensives (4) HLD (hyperlipidemia) Current Visit: Yes Status: Chronic Qualifiers: Hyperlipidemia type: mixed hyperlipidemia Qualified Code(s): E78.2 - Mixed hyperlipidemia Plan to address problem: Cont statins (5) GERD (gastroesophageal reflux disease) Current Visit: Yes Status: Chronic Qualifiers: Esophagitis presence: without esophagitis Qualified Code(s): K21.9 - Gastro-esophageal reflux disease without esophagitis Plan to address problem: Cont Famotidine (6) Vitamin D deficiency Current Visit: Yes Status: Chronic Plan to address problem: COnt vitamin D supplement (7) DVT prophylaxis Current Visit: Yes Status: Acute Plan to address problem: ASA SCD's and GI prophylaxis Subjective Date of service: 10/05/18 Principal diagnosis: Rt Tibial fracture-Proximal Interval history: 43-year-old female who comes in complaining of right knee pain and swelling patient states she was putting up some curtains at home while standing on a folding chair.Folding chair gave away and ptient fell to floor.With immediate onset of pain and swelling and inability to bear full weight on this extremity she was seen shortly afterwards in the emergency room at [facility] where x-rays were taken revealing a fracture of the proximal tibia. Objective - Constitutional Vitals: Vital Signs - 12hr 10/05/18 10/05/18 10/05/18 07:00 10:35 10:39 Temperature 98.2 F Pulse Rate 103 H Respiratory 20 20 Rate Respiratory 20 Rate [Right Knee] Blood Pressure Blood Pressure 146/86 [Left] O2 Sat by Pulse 97 Oximetry 10/05/18 10/05/18 10/05/18 12:00 12:05 15:44 Temperature 97.7 F 99.3 F 97.4 F L Pulse Rate 103 H 99 H 94 H Respiratory 20 18 14 Rate Respiratory Rate [Right Knee] Blood Pressure 157/90 145/94 Blood Pressure 141/79 [Left] O2 Sat by Pulse 98 96 99 Oximetry 10/05/18 10/05/18 10/05/18 15:49 15:54 15:59 Temperature Pulse Rate 98 H 95 H 94 H Respiratory 14 14 13 Rate Respiratory Rate [Right Knee] Blood Pressure 156/93 157/90 154/93 Blood Pressure [Left] O2 Sat by Pulse 100 100 100 Oximetry General appearance: Present: no acute distress, well-nourished - EENT Eyes: PERRL, EOM intact ENT: hearing intact, clear oral mucosa Ears: bilateral: normal - Neck Neck: supple, normal ROM - Respiratory Respiratory effort: normal Respiratory: bilateral: CTA - Breasts Breasts: normal - Cardiovascular Rhythm: regular Heart Sounds: Present: S1 & S2. Absent: gallop, rub Extremities: pulses intact, No edema, normal color, abnormal (Rt Leg swelling below knee) Extremity abnormal: other (ROM decreased at Rt knee) - Gastrointestinal General gastrointestinal: Present: soft, non-tender, non-distended, normal bowel sounds - Genitourinary Female genitourinary: normal - Integumentary Integumentary: clear, warm, dry - Musculoskeletal Musculoskeletal: 1, strength equal bilaterally - Neurologic Neurologic: moves all extremities - Psychiatric Psychiatric: memory intact, appropriate mood/affect, intact judgment & insight - Labs CBC & Chem 7: 10/04/18 04:23 10/04/18 04:23 Labs: Abnormal lab results 10/04/18 10/05/18 10/05/18 Range/Units 23:01 06:50 12:19 POC Glucose 287 H 270 H 231 H (70-105) 10/05/18 Range/Units 16:06 POC Glucose 257 H (70-105) Rt knee xray IMPRESSION: There is a displaced fracture of the proximal fibula. There is a depressed fracture of the lateral tibial plateau. There is a small joint effusion. CT RLE IMPRESSION: Comminuted fracture of lateral tibial plateau and central tibial plateau Comminuted fracture of the fibular head and neck
[2018-10-06] MEDS: HumaLOG SUB-Q SCH ×5 (00:05→21:24)
[2018-10-06] MEDS: PERCOCET 5/325 PO PRN ×3 (00:05→18:30)
[2018-10-06] MEDS: SODIUM CHLORIDE FLUSH SYRINGE 10 ML IV SCH ×2 (00:06→10:48)
[2018-10-06] MEDS: NACL 0.9% 1000 ML 1,000 ML IV SCH ×2 (05:56→18:34)
--- NOTE | 2018-10-06 07:53 | XRay Report ---
RIGHT KNEE, 2 VIEWS History: Right tibial plateau fracture Findings: 2 fluoroscopic images of the right knee were obtained during surgery. Images demonstrate internal fixation of a tibial plateau fracture with metal plate and screws. Alignment is near-anatomic. Mildly displaced proximal fibular fracture is unchanged in position and alignment since 10/03/18. Impression: Internally fixated lateral tibial plateau fracture. No change in the proximal fibula fracture
[2018-10-06 09:11] LABS: Hematocrit 28.6 % (30.3-42.9); Hemoglobin 9.3 gm/dl (10.1-14.3); Mean Corpuscular HGB Conc 32 % (30-34); Mean Corpuscular Volume 83 fl (79-97); Platelet Count 224 K/mm3 (140-440); Red Blood Count 3.47 M/mm3 (3.65-5.03); Red Cell Distribution Width 12.8 % (13.2-15.2)
[2018-10-06 09:33] LABS: Calcium 8.6 mg/dL (8.4-10.2)
[2018-10-06] MEDS ORDERED: NON-FORMULARY (Atorvastatin 20 MG) PO SCH (10:00)
[2018-10-06] MEDS ORDERED: VITAMIN D3 PO SCH (10:00)
[2018-10-06] MEDS ORDERED: REGLAN 10 MG PO SCH (10:00)
[2018-10-06] MEDS ORDERED: NON-FORMULARY (Lisinopril 10 MG) PO SCH (10:00)
[2018-10-06] MEDS ORDERED: NON-FORMULARY (Norvasc 10 MG) PO SCH (10:00)
[2018-10-06] MEDS ORDERED: NON-FORMULARY (Adult Low Dose Aspirin Ec 81 MG) PO SCH (10:00)
[2018-10-06] MEDS ORDERED: NON-FORMULARY (Hydrochlorothiazide 12.5 MG) PO SCH (10:00)
[2018-10-06] MEDS: ZOFRAN IV PRN (10:35)
[2018-10-06] MEDS: LOVENOX SUB-Q SCH (10:35)
[2018-10-06] MEDS: VITAMIN D3 PO SCH (11:54)
[2018-10-06] MEDS: REGLAN PO SCH (11:54)
[2018-10-06] MEDS: HALFPRIN EC PO SCH (11:54)
[2018-10-06] MEDS: HCTZ PO SCH (12:02)
[2018-10-06] MEDS: ZESTRIL PO SCH (12:02)
[2018-10-06] MEDS: NORVASC PO SCH ×2 (12:02→21:36)
--- NOTE | 2018-10-06 13:03 | Progress Note ---
Assessment and Plan S/P ORIF right proximal tibia post op #1 doing ok continue PT and observation Subjective Date of service: 10/06/18 Principal diagnosis: Rt Tibial fracture-Proximal Interval history: No c/o's noted, PT started... Objective Vital signs: Vital Signs - 12hr 10/06/18 10/06/18 10/06/18 03:42 07:20 09:40 Temperature 99.3 F 99.6 F Pulse Rate 105 H 112 H Respiratory 17 18 Rate Blood Pressure 107/63 Blood Pressure 102/60 [Left] O2 Sat by Pulse 98 98 99 Oximetry 10/06/18 10/06/18 11:40 12:02 Temperature 98.3 F Pulse Rate 105 H Respiratory 18 Rate Blood Pressure 95/54 Blood Pressure 95/54 [Left] O2 Sat by Pulse 91 Oximetry Narrative Exam: Right LE's - post op dressing intact moderate bloody drainage, compartments soft, neg Nori's - Labs CBC & BMP: 10/06/18 08:34 10/06/18 08:34 Labs: Abnormal lab results 10/05/18 10/05/18 10/06/18 Range/Units 16:06 23:34 06:32 RBC (3.65-5.03) M/mm3 Hgb (10.1-14.3) gm/dl Hct (30.3-42.9) % MCH (28-32) pg RDW (13.2-15.2) % Sodium (137-145) mmol/L BUN (7-17) mg/dL Creatinine (0.7-1.2) mg/dL Glucose (65-100) mg/dL POC Glucose 257 H 296 H 251 H (70-105) 10/06/18 10/06/18 Range/Units 08:34 08:34 RBC 3.47 L (3.65-5.03) M/mm3 Hgb 9.3 L (10.1-14.3) gm/dl Hct 28.6 L D (30.3-42.9) % MCH 27 L (28-32) pg RDW 12.8 L (13.2-15.2) % Sodium 134 L (137-145) mmol/L BUN 20 H (7-17) mg/dL Creatinine 2.2 H (0.7-1.2) mg/dL Glucose 282 H (65-100) mg/dL POC Glucose (70-105)
--- NOTE | 2018-10-06 15:17 | Consultation ---
History of Present Illness - Reason for Consult Consult date: 10/06/18 acute renal failure, chronic renal failure - History of Present Illness 43-year-old woman history of stage III CKD, hypertension, diabetes who presented to the emergency room w/ c/o leg pain. Patient states she was standing on the chair hanging curtains when she felt through the seat of the chair followed by onset of right leg pain. Imaging notable for fracture of the right proximal tibia Past History Past Medical History: diabetes, hypertension, hyperlipidemia, renal failure (stage III chronic kidney disease), other (background diabetic retinopathy) Past Surgical History: Other (BTL, hysterectomy, section) Medications and Allergies Allergies Allergy/AdvReac Type Severity Reaction Status Date / Time ciprofloxacin [From Cipro] Allergy SOB, hives Verified 12/27/17 17:12 ciprofloxacin HCl Allergy SOB, hives Verified 12/27/17 17:12 [From Cipro] Home Medications Medication Instructions Recorded Confirmed Last Taken Type Adult Low Dose Aspirin EC 81 mg PO QA 10/04/18 10/04/18 Unknown History Atorvastatin 20 mg PO QAM 10/04/18 10/04/18 Unknown History Famotidine [Pepcid] 20 mg PO BID 10/04/18 10/04/18 Unknown History Hydrochlorothiazide 12.5 mg PO QAM 10/04/18 10/04/18 Unknown History Lisinopril 10 mg PO QAM 10/04/18 10/04/18 Unknown History Norvasc 10 mg PO BID 10/04/18 10/04/18 Unknown History Multivitamin Tablet 1 tab PO QA 10/04/18 10/04/18 Unknown History Reglan TAB 10 mg PO [facility] 10/04/18 10/04/18 Unknown History Vitamin D3 1,000 UNIT TAB 2,000 units PO QAM 10/04/18 10/04/18 Unknown History Active Meds: Active Medications Acetaminophen (Tylenol) 650 mg PO Q4H PRN PRN Reason: Pain MILD(1-3)/Fever >100.5/YATES Amlodipine Besylate (Norvasc) 10 mg PO BID [facility] Last Admin: 10/06/18 12:02 Dose: Not Given Documented by: Aspirin (Halfprin Ec) 81 mg PO QDAY [facility] Last Admin: 10/06/18 11:54 Dose: 81 mg Documented by: Atorvastatin Calcium (Lipitor) 20 mg PO QHS [facility] Cholecalciferol (Vitamin D3) 2,000 unit PO QDAY [facility] Last Admin: 10/06/18 11:54 Dose: 2,000 unit Documented by: Dextrose (D50w (25gm) Syringe) 50 ml IV PRN PRN PRN Reason: Hypoglycemia Enoxaparin Sodium (Lovenox) 40 mg SUB-Q QDAY [facility] Last Admin: 10/06/18 10:35 Dose: 40 mg Documented by: Famotidine (Pepcid) 20 mg PO QHS [facility] Hydrochlorothiazide (Hctz) 12.5 mg PO QDAY [facility] Last Admin: 10/06/18 12:02 Dose: Not Given Documented by: Sodium Chloride (Nacl 0.9% 1000 Ml) 1,000 mls @ 75 mls/hr IV DIRECT [facility] Last Admin: 10/06/18 05:56 Dose: 75 mls/hr Documented by: Insulin Human Lispro (Humalog) 0 unit SUB-Q Q6HR [facility]; Protocol Last Admin: 10/06/18 13:57 Dose: Not Given Documented by: Lisinopril (Zestril) 10 mg PO QDAY [facility] Last Admin: 10/06/18 12:02 Dose: Not Given Documented by: Metoclopramide HCl (Reglan) 10 mg PO QAM [facility] Last Admin: 10/06/18 11:54 Dose: 10 mg Documented by: Morphine Sulfate (Morphine) 4 mg IV Q4H PRN PRN Reason: Pain , Severe (7-10) Last Admin: 10/06/18 10:35 Dose: 4 mg Documented by: Ondansetron HCl (Zofran) 4 mg IV Q4H PRN PRN Reason: Nausea And Vomiting Last Admin: 10/06/18 10:35 Dose: 4 mg Documented by: Oxycodone/Acetaminophen (Percocet 5/325) 1 tab PO Q6H PRN PRN Reason: Pain, Moderate (4-6) Last Admin: 10/06/18 05:51 Dose: 1 tab Documented by: Sodium Chloride (Sodium Chloride Flush Syringe 10 Ml) 10 ml IV BID [facility] Last Admin: 10/06/18 10:48 Dose: 10 ml Documented by: Sodium Chloride (Sodium Chloride Flush Syringe 10 Ml) 10 ml IV PRN PRN PRN Reason: LINE FLUSH Sodium Chloride (Sodium Chloride Flush Syringe 10 Ml) 10 ml IV PRN NR Stop: 10/06/18 16:59 Review of Systems All systems: negative Exam - Vital Signs Vital signs: Vital Signs Pulse Ox 99 10/03/18 23:18 - General Appearance General appearance: well-developed, well-nourished EENT: ATNC Respiratory: Clear to Ascultation Heart: regular, S1S2 Gastrointestinal: Present: normal. Absent: tenderness, distended Integumentary: no rash, warm and dry Neurologic: alert and oriented x3 Musculoskeletal: Present: other (no edema) Psychiatric: cooperative Results - Lab Results 10/06/18 08:34 10/06/18 08:34 Most recent lab results Calcium 8.6 mg/dL (8.4-10.2) D 10/06/18 08:34 Assessment and Plan Impression: * Stage III chronic kidney disease --Baseline SCr 1.7mg/dL * Right lateral tibial plateau fracture s/p ORIF * Hypertension * DM w/ background diabetic retinopathy Plan: * SCr elevated above baseline * Avoid NSAIDs - patient received Toradol on 10/05 * Glycemic control per primary team * Continue antiHTN medications * Avoid nephrotoxins * Dose medications for renal function * AM labs ordered
--- NOTE | 2018-10-06 15:50 | Progress Note ---
Assessment and Plan Assessment and plan: Fracture right tibia plateau and fibular head and neck Status post surgery - ORIF and allograft bone Chronic kidney disease baseline unknown Follows with Dr. Nelson as outpatient Hypertension Monitor BP Hyperlipidemia On Lipitor GERD Full code status History Interval history: Mild pain right lower ext at surgical site Hospitalist Physical - Physical exam Narrative exam: Gen: Not in acute distress, lying in bed, obese HEENT: Normocephalic, atraumatic Heart: S1 and S2 reg, no murmurs, rubs or gallop Lungs: Clear, no crackles or wheeze, Abd: soft, non tender, non distended, normal BS Ext: Right knee in splint,no clubbing, no cyanosis Neuro: AAO x 3, no focal signs, moves all ext Psych:Normal mood - Constitutional Vitals: Temp Pulse Resp BP Pulse Ox 100.5 F H 111 H 19 143/76 91 10/06/18 15:40 10/06/18 15:40 10/06/18 15:40 10/06/18 15:40 10/06/18 15:40 General appearance: Present: no acute distress, well-nourished Results - Labs CBC & Chem 7: 10/06/18 08:34 10/08/18 04:08 Labs: Laboratory Last Values WBC 11.0 K/mm3 (4.5-11.0) 10/06/18 08:34 RBC 3.47 M/mm3 (3.65-5.03) L 10/06/18 08:34 Hgb 9.3 gm/dl (10.1-14.3) L 10/06/18 08:34 Hct 28.6 % (30.3-42.9) L D 10/06/18 08:34 MCV 83 fl (79-97) 10/06/18 08:34 MCH 27 pg (28-32) L 10/06/18 08:34 MCHC 32 % (30-34) 10/06/18 08:34 RDW 12.8 % (13.2-15.2) L 10/06/18 08:34 Plt Count 224 K/mm3 (140-440) 10/06/18 08:34 Lymph % (Auto) 14.7 % (13.4-35.0) 10/04/18 04:23 [place] % (Auto) 8.6 % (0.0-7.3) H 10/04/18 04:23 Eos % (Auto) 0.9 % (0.0-4.3) 10/04/18 04:23 Baso % (Auto) 0.4 % (0.0-1.8) 10/04/18 04:23 Lymph # 1.3 K/mm3 (1.2-5.4) 10/04/18 04:23 [place] # 0.8 K/mm3 (0.0-0.8) 10/04/18 04:23 Eos # 0.1 K/mm3 (0.0-0.4) 10/04/18 04:23 Baso # 0.0 K/mm3 (0.0-0.1) 10/04/18 04:23 Seg Neutrophils % 75.4 % (40.0-70.0) H 10/04/18 04:23 Seg Neutrophils # 6.8 K/mm3 (1.8-7.7) 10/04/18 04:23 PT 12.6 Sec. (12.2-14.9) 10/04/18 04:23 INR 0.89 (0.87-1.13) 10/04/18 04:23 APTT 28.3 Sec. (24.2-36.6) 10/04/18 04:23 Sodium 134 mmol/L (137-145) L 10/06/18 08:34 Potassium 4.4 mmol/L (3.6-5.0) 10/06/18 08:34 Chloride 99.2 mmol/L (98-107) 10/06/18 08:34 Carbon Dioxide 24 mmol/L (22-30) 10/06/18 08:34 Anion Gap 15 mmol/L 10/06/18 08:34 BUN 20 mg/dL (7-17) H 10/06/18 08:34 Creatinine 2.2 mg/dL (0.7-1.2) H 10/06/18 08:34 Estimated GFR 30 ml/min 10/06/18 08:34 BUN/Creatinine Ratio 9 % 10/06/18 08:34 Glucose 282 mg/dL (65-100) H 10/06/18 08:34 POC Glucose 342 (70-105) H 10/06/18 15:12 Calcium 8.6 mg/dL (8.4-10.2) D 10/06/18 08:34 Urine Color Straw (Yellow) 10/04/18 00:30 Urine Turbidity Clear (Clear) 10/04/18 00:30 Urine pH 6.0 (5.0-7.0) 10/04/18 00:30 Ur Specific [place] 1.010 (1.003-1.030) 10/04/18 00:30 Urine Protein 100 mg/dl mg/dL (Negative) 10/04/18 00:30 Urine Glucose (UA) Neg mg/dL (Negative) 10/04/18 00:30 Urine Ketones Neg mg/dL (Negative) 10/04/18 00:30 Urine Blood Neg (Negative) 10/04/18 00:30 Urine Nitrite Neg (Negative) 10/04/18 00:30 Urine Bilirubin Neg (Negative) 10/04/18 00:30 Urine Urobilinogen < 2.0 mg/dL (<2.0) 10/04/18 00:30 Ur Leukocyte Esterase Neg (Negative) 10/04/18 00:30 Urine WBC (Auto) 1.0 /HPF (0.0-6.0) 10/04/18 00:30 Urine RBC (Auto) 1.0 /HPF (0.0-6.0) 10/04/18 00:30 U Epithel Cells (Auto) 1.0 /HPF (0-13.0) 10/04/18 00:30 Urine Bacteria (Auto) 1+ /HPF (Negative) 10/04/18 00:30 Urine HCG, Qual Negative (Negative) 10/04/18 00:30 Active Medications - Current Medications Current Medications: Generic Name Dose Route Start Last Admin Trade Name Freq PRN Reason Stop Dose Admin Acetaminophen 650 mg 10/04/18 01:56 Tylenol PO Q4H PRN Pain MILD(1-3)/Fever >100.5/YATES Amlodipine Besylate 10 mg 10/06/18 11:00 10/06/18 12:02 Norvasc PO Not Given BID JINA Aspirin 81 mg 10/06/18 11:00 10/06/18 11:54 Halfprin Ec PO 81 mg QDAY JINA Administration Atorvastatin Calcium 20 mg 10/06/18 22:00 Lipitor PO QHS [facility] Cholecalciferol 2,000 unit 10/06/18 11:00 04/09/19 11:54 Vitamin D3 PO 2,000 unit QDAY JINA Administration Dextrose 50 ml 10/04/18 01:56 D50w (25gm) Syringe IV PRN PRN Hypoglycemia Enoxaparin Sodium 40 mg 10/04/18 10:00 10/06/18 10:35 Lovenox SUB-Q 40 mg QDAY JINA Administration Famotidine 20 mg 10/06/18 22:00 Pepcid PO QHS JINA Hydrochlorothiazide 12.5 mg 10/06/18 11:00 10/06/18 12:02 Hctz PO Not Given QDAY JINA Sodium Chloride 1,000 mls @ 75 mls/hr 10/05/18 13:00 10/06/18 05:56 Nacl 0.9% 1000 Ml IV 75 mls/hr DIRECT JINA Administration Insulin Human Lispro 0 unit 10/04/18 06:00 10/06/18 15:41 Humalog SUB-Q 8 unit Q6HR JIAN Administration Protocol Lisinopril 10 mg 10/06/18 11:00 10/06/18 12:02 Zestril PO Not Given QDAY JINA Metoclopramide HCl 10 mg 10/06/18 11:00 10/06/18 11:54 Reglan PO 10 mg QAM JINA Administration Morphine Sulfate 4 mg 10/05/18 16:22 10/06/18 10:35 Morphine IV 4 mg Q4H PRN Administration Pain , Severe (7-10) Ondansetron HCl 4 mg 10/04/18 01:56 10/06/18 10:35 Zofran IV 4 mg Q4H PRN Administration Nausea And Vomiting Oxycodone/Acetaminophen 1 tab 10/05/18 16:22 10/06/18 05:51 Percocet 5/325 PO 1 tab Q6H PRN Administration Pain, Moderate (4-6) Sodium Chloride 10 ml 10/04/18 10:00 10/06/18 10:48 Sodium Chloride Flush Syringe 10 Ml IV 10 ml BID JINA Administration Sodium Chloride 10 ml 10/04/18 01:56 Sodium Chloride Flush Syringe 10 Ml IV PRN PRN LINE FLUSH Sodium Chloride 10 ml 10/05/18 17:00 Sodium Chloride Flush Syringe 10 Ml IV 10/06/18 16:59 PRN NR
[2018-10-06] MEDS: TYLENOL PO PRN (21:36)
[2018-10-06] MEDS: PEPCID PO SCH (21:36)
[2018-10-07] MEDS: SODIUM CHLORIDE FLUSH SYRINGE 10 ML IV SCH ×3 (00:01→22:18)
[2018-10-07] MEDS: ZOFRAN IV PRN (04:30)
[2018-10-07] MEDS: NACL 0.9% 1000 ML 1,000 ML IV SCH (05:25)
[2018-10-07] MEDS: HumaLOG SUB-Q SCH ×5 (06:52→22:17)
[2018-10-07 08:31] LABS: Calcium 8.9 mg/dL (8.4-10.2)
[2018-10-07] MEDS: TYLENOL PO PRN (08:37)
[2018-10-07] MEDS: LOVENOX SUB-Q SCH ×2 (08:38→19:33)
[2018-10-07] MEDS: REGLAN PO SCH ×2 (08:39→19:34)
[2018-10-07] MEDS: VITAMIN D3 PO SCH ×2 (08:39→19:34)
[2018-10-07] MEDS: NORVASC PO SCH ×3 (08:40→22:17)
[2018-10-07] MEDS: HALFPRIN EC PO SCH ×2 (08:42→19:32)
[2018-10-07] MEDS: ZESTRIL PO SCH ×2 (08:42→19:34)
[2018-10-07] MEDS: HCTZ PO SCH ×2 (08:42→19:33)
--- NOTE | 2018-10-07 10:40 | Progress Note ---
Assessment and Plan Impression: * Stage III chronic kidney disease --Baseline SCr 1.7mg/dL * Right lateral tibial plateau fracture s/p ORIF * Hypertension * DM w/ background diabetic retinopathy Plan: * SCr is at baseline * Avoid NSAIDs - patient received Toradol on 10/05 * Glycemic control per primary team * Continue antiHTN medications * Avoid nephrotoxins * Dose medications for renal function * AM labs ordered Subjective Date of service: 10/07/18 Principal diagnosis: Rt Tibial fracture-Proximal Interval history: resting well in bed today Objective - Exam Narrative Exam: General appearance: well-developed, well-nourished EENT: ATNC Respiratory: Clear to Ascultation Heart: regular, S1S2 Gastrointestinal: Present: normal. Absent: tenderness, distended Integumentary: no rash, warm and dry Neurologic: alert and oriented x3 Musculoskeletal: Present: other (no edema) Psychiatric: cooperative - Vital Signs Vital signs: Vital Signs - 12hr 10/07/18 10/07/18 10/07/18 00:22 04:19 07:28 Temperature 98.2 F 98.9 F 100.9 F H Pulse Rate 109 H 111 H 121 H Respiratory 16 18 18 Rate Blood Pressure 109/61 123/72 143/84 O2 Sat by Pulse 92 99 94 Oximetry 10/07/18 10/07/18 10/07/18 07:29 08:40 08:42 Temperature Pulse Rate 122 H 122 H 122 H Respiratory Rate Blood Pressure 143/84 143/84 O2 Sat by Pulse 89 Oximetry 10/07/18 09:36 Temperature Pulse Rate Respiratory Rate Blood Pressure O2 Sat by Pulse 93 Oximetry - Lab 10/06/18 08:34 10/07/18 07:19 Most recent lab results Calcium 8.9 mg/dL (8.4-10.2) 10/07/18 07:19 Medications & Allergies - Medications Allergies/Adverse Reactions: Allergies ciprofloxacin [From Cipro] Allergy (Verified 12/27/17 17:12) SOB, hives ciprofloxacin HCl [From Cipro] Allergy (Verified 12/27/17 17:12) SOB, hives Home Medications: Home Medications Medication Instructions Recorded Confirmed Last Taken Type Adult Low Dose Aspirin EC 81 mg PO QAM 10/04/18 10/04/18 Unknown History Atorvastatin 20 mg PO QAM 10/04/18 10/04/18 Unknown History Famotidine [Pepcid] 20 mg PO BID 10/04/18 10/04/18 Unknown History Hydrochlorothiazide 12.5 mg PO QA 10/04/18 10/04/18 Unknown History Lisinopril 10 mg PO QA 10/04/18 10/04/18 Unknown History Norvasc 10 mg PO BID 10/04/18 10/04/18 Unknown History Multivitamin Tablet 1 tab PO QA 10/04/18 10/04/18 Unknown History Reglan TAB 10 mg PO [facility] 10/04/18 10/04/18 Unknown History Vitamin D3 1,000 UNIT TAB 2,000 units PO QA 10/04/18 10/04/18 Unknown History Active Medications: Generic Name Dose Route Start Last Admin Trade Name Freq PRN Reason Stop Dose Admin Acetaminophen 650 mg 10/04/18 01:56 10/07/18 08:37 Tylenol PO 650 mg Q4H PRN Administration Pain MILD(1-3)/Fever >100.5/YATES Amlodipine Besylate 10 mg 10/06/18 11:00 10/07/18 08:40 Norvasc PO 10 mg BID JINA Administration Aspirin 81 mg 10/06/18 11:00 10/07/18 08:42 Halfprin Ec PO 81 mg QDAY JINA Administration Atorvastatin Calcium 20 mg 10/06/18 22:00 10/06/18 21:36 Lipitor PO 20 mg QHS JINA Administration Cholecalciferol 2,000 unit 10/06/18 11:00 10/07/18 08:39 Vitamin D3 PO 2,000 unit QDAY JINA Administration Dextrose 50 ml 10/04/18 01:56 D50w (25gm) Syringe IV PRN PRN Hypoglycemia Enoxaparin Sodium 40 mg 10/04/18 10:00 10/07/18 08:38 Lovenox SUB-Q 40 mg QDAY JINA Administration Famotidine 20 mg 10/06/18 22:00 10/06/18 21:36 Pepcid PO 20 mg QHS JINA Administration Hydrochlorothiazide 12.5 mg 10/06/18 11:00 10/07/18 08:42 Hctz PO 12.5 mg QDAY JINA Administration Sodium Chloride 1,000 mls @ 75 mls/hr 10/05/18 13:00 10/07/18 05:25 Nacl 0.9% 1000 Ml IV 75 mls/hr DIRECT JINA Administration Insulin Human Lispro 0 unit 10/04/18 06:00 10/07/18 06:52 Humalog SUB-Q 4 unit Q6HR JINA Administration Protocol Lisinopril 10 mg 10/06/18 11:00 10/07/18 08:42 Zestril PO 10 mg QDAY JINA Administration Metoclopramide HCl 10 mg 10/06/18 11:00 10/07/18 08:39 Reglan PO 10 mg QAM JINA Administration Morphine Sulfate 4 mg 10/05/18 16:22 10/06/18 10:35 Morphine IV 4 mg Q4H PRN Administration Pain , Severe (7-10) Ondansetron HCl 4 mg 10/04/18 01:56 10/07/18 04:30 Zofran IV 4 mg Q4H PRN Administration Nausea And Vomiting Oxycodone/Acetaminophen 1 tab 10/05/18 16:22 10/07/18 00:00 Percocet 5/325 PO 1 tab Q6H PRN Administration Pain, Moderate (4-6) Sodium Chloride 10 ml 10/04/18 10:00 10/07/18 00:01 Sodium Chloride Flush Syringe 10 Ml IV 10 ml BID JINA Administration Sodium Chloride 10 ml 10/04/18 01:56 Sodium Chloride Flush Syringe 10 Ml IV PRN PRN LINE FLUSH
[2018-10-07] MEDS: LOPRESSOR PO SCH ×2 (14:28→22:18)
[2018-10-07] MEDS: PERCOCET 5/325 PO PRN ×2 (15:45)
--- NOTE | 2018-10-07 17:57 | Progress Note ---
Assessment and Plan Assessment and plan: Fracture right tibia plateau and fibular head and neck Status post surgery - ORIF and allograft bone POD #2 Chronic kidney disease Cr 1.6 today, at baseline Nephrology following Hypertension Monitor BP Hyperlipidemia On Lipitor GERD Full code status History Interval history: Mild pain right lower ext at surgical site Hospitalist Physical - Physical exam Narrative exam: Gen: Not in acute distress, lying in bed, obese HEENT: Normocephalic, atraumatic Heart: S1 and S2 reg, no murmurs, rubs or gallop Lungs: Clear, no crackles or wheeze, Abd: soft, non tender, non distended, normal BS Ext: Right knee in splint,no clubbing, no cyanosis Neuro: AAO x 3, no focal signs, moves all ext Psych:Normal mood - Constitutional Vitals: Temp Pulse Resp BP Pulse Ox 100.0 F H 106 H 18 120/73 95 10/07/18 15:20 10/07/18 15:20 10/07/18 15:20 10/07/18 15:20 10/07/18 15:20 General appearance: Present: no acute distress, well-nourished Results - Labs CBC & Chem 7: 10/06/18 08:34 10/08/18 04:08 Labs: Laboratory Last Values WBC 11.0 K/mm3 (4.5-11.0) 10/06/18 08:34 RBC 3.47 M/mm3 (3.65-5.03) L 10/06/18 08:34 Hgb 9.3 gm/dl (10.1-14.3) L 10/06/18 08:34 Hct 28.6 % (30.3-42.9) L D 10/06/18 08:34 MCV 83 fl (79-97) 10/06/18 08:34 MCH 27 pg (28-32) L 10/06/18 08:34 MCHC 32 % (30-34) 10/06/18 08:34 RDW 12.8 % (13.2-15.2) L 10/06/18 08:34 Plt Count 224 K/mm3 (140-440) 10/06/18 08:34 Lymph % (Auto) 14.7 % (13.4-35.0) 10/04/18 04:23 Hardy % (Auto) 8.6 % (0.0-7.3) H 10/04/18 04:23 Eos % (Auto) 0.9 % (0.0-4.3) 10/04/18 04:23 Baso % (Auto) 0.4 % (0.0-1.8) 10/04/18 04:23 Lymph # 1.3 K/mm3 (1.2-5.4) 10/04/18 04:23 Hardy # 0.8 K/mm3 (0.0-0.8) 10/04/18 04:23 Eos # 0.1 K/mm3 (0.0-0.4) 10/04/18 04:23 Baso # 0.0 K/mm3 (0.0-0.1) 10/04/18 04:23 Seg Neutrophils % 75.4 % (40.0-70.0) H 10/04/18 04:23 Seg Neutrophils # 6.8 K/mm3 (1.8-7.7) 10/04/18 04:23 PT 12.6 Sec. (12.2-14.9) 10/04/18 04:23 INR 0.89 (0.87-1.13) 10/04/18 04:23 APTT 28.3 Sec. (24.2-36.6) 10/04/18 04:23 Sodium 133 mmol/L (137-145) L 10/07/18 07:19 Potassium 4.8 mmol/L (3.6-5.0) 10/07/18 07:19 Chloride 99.1 mmol/L (98-107) 10/07/18 07:19 Carbon Dioxide 21 mmol/L (22-30) L 10/07/18 07:19 Anion Gap 18 mmol/L 10/07/18 07:19 BUN 16 mg/dL (7-17) 10/07/18 07:19 Creatinine 1.6 mg/dL (0.7-1.2) H 10/07/18 07:19 Estimated GFR 43 ml/min 10/07/18 07:19 BUN/Creatinine Ratio 10 % 10/07/18 07:19 Glucose 267 mg/dL (65-100) H 10/07/18 07:19 POC Glucose 314 (70-105) H 10/07/18 11:50 Calcium 8.9 mg/dL (8.4-10.2) 10/07/18 07:19 Urine Color Straw (Yellow) 10/04/18 00:30 Urine Turbidity Clear (Clear) 10/04/18 00:30 Urine pH 6.0 (5.0-7.0) 10/04/18 00:30 Ur Specific Sabael 1.010 (1.003-1.030) 10/04/18 00:30 Urine Protein 100 mg/dl mg/dL (Negative) 10/04/18 00:30 Urine Glucose (UA) Neg mg/dL (Negative) 10/04/18 00:30 Urine Ketones Neg mg/dL (Negative) 10/04/18 00:30 Urine Blood Neg (Negative) 10/04/18 00:30 Urine Nitrite Neg (Negative) 10/04/18 00:30 Urine Bilirubin Neg (Negative) 10/04/18 00:30 Urine Urobilinogen < 2.0 mg/dL (<2.0) 10/04/18 00:30 Ur Leukocyte Esterase Neg (Negative) 10/04/18 00:30 Urine WBC (Auto) 1.0 /HPF (0.0-6.0) 10/04/18 00:30 Urine RBC (Auto) 1.0 /HPF (0.0-6.0) 10/04/18 00:30 U Epithel Cells (Auto) 1.0 /HPF (0-13.0) 10/04/18 00:30 Urine Bacteria (Auto) 1+ /HPF (Negative) 10/04/18 00:30 Urine HCG, Qual Negative (Negative) 10/04/18 00:30 Active Medications - Current Medications Current Medications: Generic Name Dose Route Start Last Admin Trade Name Freq PRN Reason Stop Dose Admin Acetaminophen 650 mg 10/04/18 01:56 10/07/18 08:37 Tylenol PO 650 mg Q4H PRN Administration Pain MILD(1-3)/Fever >100.5/YATES Amlodipine Besylate 10 mg 10/06/18 11:00 10/07/18 08:40 Norvasc PO 10 mg BID JINA Administration Aspirin 81 mg 10/06/18 11:00 10/07/18 08:42 Halfprin Ec PO 81 mg QDAY JINA Administration Atorvastatin Calcium 20 mg 10/06/18 22:00 10/06/18 21:36 Lipitor PO 20 mg QHS JINA Administration Cholecalciferol 2,000 unit 10/06/18 11:00 10/07/18 08:39 Vitamin D3 PO 2,000 unit QDAY JINA Administration Dextrose 50 ml 10/04/18 01:56 D50w (25gm) Syringe IV PRN PRN Hypoglycemia Enoxaparin Sodium 40 mg 10/04/18 10:00 10/07/18 08:38 Lovenox SUB-Q 40 mg QDAY JINA Administration Famotidine 20 mg 10/06/18 22:00 10/06/18 21:36 Pepcid PO 20 mg QHS JINA Administration Hydrochlorothiazide 12.5 mg 10/06/18 11:00 10/07/18 08:42 Hctz PO 12.5 mg QDAY JNIA Administration Sodium Chloride 1,000 mls @ 75 mls/hr 10/05/18 13:00 10/07/18 05:25 Nacl 0.9% 1000 Ml IV 75 mls/hr DIRECT JINA Administration Insulin Human Isoph/Insulin Regular 8 unit 10/07/18 17:00 Humulin 70/30 SUB-Q BIDDIAB JINA Insulin Human Lispro 0 unit 10/04/18 06:00 10/07/18 17:55 Humalog SUB-Q 8 unit Q6HR JINA Administration Protocol Lisinopril 10 mg 10/06/18 11:00 10/07/18 08:42 Zestril PO 10 mg QDAY JINA Administration Metoclopramide HCl 10 mg 10/06/18 11:00 10/07/18 08:39 Reglan PO 10 mg QAM JINA Administration Metoprolol Tartrate 25 mg 10/07/18 13:00 10/07/18 14:28 Lopressor PO 25 mg BID JINA Administration Morphine Sulfate 4 mg 10/05/18 16:22 10/06/18 10:35 Morphine IV 4 mg Q4H PRN Administration Pain , Severe (7-10) Ondansetron HCl 4 mg 10/04/18 01:56 10/07/18 04:30 Zofran IV 4 mg Q4H PRN Administration Nausea And Vomiting Oxycodone/Acetaminophen 1 tab 10/05/18 16:22 10/07/18 15:45 Percocet 5/325 PO 1 tab Q6H PRN Administration Pain, Moderate (4-6) Sodium Chloride 10 ml 10/04/18 10:00 10/07/18 00:01 Sodium Chloride Flush Syringe 10 Ml IV 10 ml BID JINA Administration Sodium Chloride 10 ml 10/04/18 01:56 Sodium Chloride Flush Syringe 10 Ml IV PRN PRN LINE FLUSH
[2018-10-07] MEDS: PEPCID PO SCH (22:18)
[2018-10-08] MEDS: HumaLOG SUB-Q SCH ×3 (00:21→14:55)
[2018-10-08] MEDS: ZOFRAN IV PRN (06:45)
[2018-10-08] MEDS: PERCOCET 5/325 PO PRN (10:01)
[2018-10-08] MEDS: NORVASC PO SCH (10:01)
[2018-10-08] MEDS: VITAMIN D3 PO SCH (10:01)
[2018-10-08] MEDS: HCTZ PO SCH (10:01)
[2018-10-08] MEDS: REGLAN PO SCH (10:01)
[2018-10-08] MEDS: LOVENOX SUB-Q SCH (10:02)
[2018-10-08] MEDS: HALFPRIN EC PO SCH (10:02)
[2018-10-08] MEDS: ZESTRIL PO SCH (10:02)
[2018-10-08] MEDS: LOPRESSOR PO SCH (10:05)
[2018-10-08] MEDS: NACL 0.9% 1000 ML 1,000 ML IV SCH (10:09)
--- NOTE | 2018-10-08 12:42 | Progress Note ---
Assessment and Plan Impression: * Stage III chronic kidney disease --Baseline SCr 1.7mg/dL * Right lateral tibial plateau fracture s/p ORIF * Hypertension * DM w/ background diabetic retinopathy Plan: * SCr is at baseline * Avoid NSAIDs - patient received Toradol on 10/05 * Glycemic control per primary team * Continue antiHTN medications * Avoid nephrotoxins * Dose medications for renal function * AM labs ordered Subjective Date of service: 10/08/18 Principal diagnosis: Rt Tibial fracture-Proximal Interval history: resting well in bed today Objective - Exam Narrative Exam: General appearance: well-developed, well-nourished EENT: ATNC Respiratory: Clear to Ascultation Heart: regular, S1S2 Gastrointestinal: Present: normal. Absent: tenderness, distended Integumentary: no rash, warm and dry Neurologic: alert and oriented x3 Musculoskeletal: Present: other (no edema) Psychiatric: cooperative - Vital Signs Vital signs: Vital Signs - 12hr 10/08/18 10/08/18 10/08/18 04:18 05:05 10:00 Temperature 98.8 F Pulse Rate 113 H Respiratory 20 Rate Blood Pressure 141/85 Blood Pressure [Left] O2 Sat by Pulse 83 L 92 92 Oximetry 10/08/18 10:23 Temperature 97.8 F Pulse Rate 89 Respiratory 18 Rate Blood Pressure Blood Pressure 125/70 [Left] O2 Sat by Pulse 98 Oximetry - Lab 10/06/18 08:34 10/08/18 04:08 Most recent lab results Calcium 9.0 mg/dL (8.4-10.2) 10/08/18 04:08 Medications & Allergies - Medications Allergies/Adverse Reactions: Allergies ciprofloxacin [From Cipro] Allergy (Verified 12/27/17 17:12) SOB, hives ciprofloxacin HCl [From Cipro] Allergy (Verified 12/27/17 17:12) SOB, hives Home Medications: Home Medications Medication Instructions Recorded Confirmed Last Taken Type Adult Low Dose Aspirin EC 81 mg PO QAM 10/04/18 10/04/18 Unknown History Atorvastatin 20 mg PO QAM 10/04/18 10/04/18 Unknown History Famotidine [Pepcid] 20 mg PO BID 10/04/18 10/04/18 Unknown History Hydrochlorothiazide 12.5 mg PO QAM 10/04/18 10/04/18 Unknown History Lisinopril 10 mg PO QAM 10/04/18 10/04/18 Unknown History Norvasc 10 mg PO BID 10/04/18 10/04/18 Unknown History Multivitamin Tablet 1 tab PO QAM 10/04/18 10/04/18 Unknown History Reglan TAB 10 mg PO QAM 10/04/18 10/04/18 Unknown History Vitamin D3 1,000 UNIT TAB 2,000 units PO QAM 10/04/18 10/04/18 Unknown History Active Medications: Generic Name Dose Route Start Last Admin Trade Name Freq PRN Reason Stop Dose Admin Acetaminophen 650 mg 10/04/18 01:56 10/07/18 08:37 Tylenol PO 650 mg Q4H PRN Administration Pain MILD(1-3)/Fever >100.5/YATES Amlodipine Besylate 10 mg 10/06/18 11:00 10/08/18 10:01 Norvasc PO 10 mg BID JINA Administration Aspirin 81 mg 10/06/18 11:00 10/08/18 10:02 Halfprin Ec PO 81 mg QDAY JINA Administration Atorvastatin Calcium 20 mg 10/06/18 22:00 10/07/18 22:17 Lipitor PO 20 mg QHS JINA Administration Cholecalciferol 2,000 unit 10/06/18 11:00 10/08/18 10:01 Vitamin D3 PO 2,000 unit QDAY JINA Administration Dextrose 50 ml 10/04/18 01:56 D50w (25gm) Syringe IV PRN PRN Hypoglycemia Enoxaparin Sodium 40 mg 10/04/18 10:00 10/08/18 10:02 Lovenox SUB-Q 40 mg QDAY JINA Administration Famotidine 20 mg 10/06/18 22:00 10/07/18 22:18 Pepcid PO 20 mg QHS JINA Administration Hydrochlorothiazide 12.5 mg 10/06/18 11:00 10/08/18 10:01 Hctz PO 12.5 mg QDAY JINA Administration Sodium Chloride 1,000 mls @ 75 mls/hr 10/05/18 13:00 10/08/18 10:09 Nacl 0.9% 1000 Ml IV 75 mls/hr DIRECT JIAN Administration Insulin Human Isoph/Insulin Regular 8 unit 10/07/18 17:00 10/08/18 10:02 Humulin 70/30 SUB-Q 8 unit BIDDIAB JINA Administration Insulin Human Lispro 0 unit 10/04/18 06:00 10/08/18 07:40 Humalog SUB-Q 1 unit Q6HR JINA Administration Protocol Lisinopril 10 mg 10/06/18 11:00 10/08/18 10:02 Zestril PO 10 mg QDAY JINA Administration Metoclopramide HCl 10 mg 10/06/18 11:00 10/08/18 10:01 Reglan PO 10 mg QAM JINA Administration Metoprolol Tartrate 25 mg 10/07/18 13:00 10/07/18 22:18 Lopressor PO 25 mg BID JINA Administration Morphine Sulfate 4 mg 10/05/18 16:22 10/06/18 10:35 Morphine IV 4 mg Q4H PRN Administration Pain , Severe (7-10) Ondansetron HCl 4 mg 10/04/18 01:56 10/08/18 06:45 Zofran IV 4 mg Q4H PRN Administration Nausea And Vomiting Oxycodone/Acetaminophen 1 tab 10/05/18 16:22 10/08/18 10:01 Percocet 5/325 PO 1 tab Q6H PRN Administration Pain, Moderate (4-6) Sodium Chloride 10 ml 10/04/18 10:00 10/07/18 22:18 Sodium Chloride Flush Syringe 10 Ml IV 10 ml BID JINA Administration Sodium Chloride 10 ml 10/04/18 01:56 Sodium Chloride Flush Syringe 10 Ml IV PRN PRN LINE FLUSH
[2018-10-08 13:12] VITALS: BP 117/67
--- NOTE | 2018-10-08 16:10 | Discharge Summary ---
Providers - Providers Date of Admission: 10/04/18 04:00 Date of discharge: 10/08/18 Attending physician: DAVID WILLIS 10/04/18 01:20 Consult to Physician [CONS] Stat Comment: COMPLETED - CHUY Consulting Provider: YENNY DIAZ Physician Instructions: Reason For Exam: tibial plateau fx RIGHT 10/05/18 16:25 Physical Therapy Evaluation and Treat [CONS] Routine Comment: Reason For Exam: postop evaluation Weight bearing status?: Nonwt bearing Assistive devices?: Yes If so list: Walker 10/06/18 10:23 Consult to Physician [CONS] Routine Comment: Consulting Provider: KENAN HARMAN Physician Instructions: Reason For Exam: CKD Primary care physician: LUIS VEGA MD Hospitalization Condition: Fair Hospital course: Patient is 43 yo with history of hypertension, diabetes, chronic kidney disease, gastroparesis, hyperlipidemia, glaucoma, chronically elevated LFTs presented with left knee and leg pain after fall at home while standing on a chair. Xrays and CT revealed fracture lateral tibial plateau and proximal fibula head and neck. She was seen and evaluated in ED and admitted. Patient was evaluated by Orthopedic Surgeon and Open reduction internal fixation right lateral tibial plateau fracture with allograft bone was done by Dr. Diaz on 10/05/18. Patient was also evaluated by care worker for CKD.Post surgery, she was seen by Physical therapy and eventually discharged home with PT on 10/08/18. Total tie spent on discharge, 32 mins Disposition: [id number] HOME UNDER HOME HLTH - Discharge Diagnoses (1) CKD (chronic kidney disease) Status: Acute Qualifiers: Chronic kidney disease stage: unspecified stage Qualified Code(s): N18.9 - Chronic kidney disease, unspecified (2) Fracture of right proximal fibula Status: Acute Qualifiers: Fracture type: closed (3) Fracture of right tibial plateau Status: Acute Qualifiers: Encounter type: initial encounter Fracture type: closed Qualified Code(s): S82.141A - Displaced bicondylar fracture of right tibia, initial encounter for closed fracture (4) GERD (gastroesophageal reflux disease) Status: Chronic Qualifiers: Esophagitis presence: without esophagitis Qualified Code(s): K21.9 - Gastro-esophageal reflux disease without esophagitis (5) HLD (hyperlipidemia) Status: Chronic Qualifiers: Hyperlipidemia type: mixed hyperlipidemia Qualified Code(s): E78.2 - Mixed hyperlipidemia (6) HTN (hypertension) Status: Chronic Qualifiers: Hypertension type: essential hypertension Qualified Code(s): I10 - Essential (primary) hypertension (7) Postoperative fever Status: Acute Core Measure Documentation - Palliative Care Palliative Care/ Comfort Measures: Not Applicable - Core Measures Any of the following diagnoses?: none Exam - Physical Exam Narrative exam: Gen: Not in acute distress, lying in bed, obese HEENT: Normocephalic, atraumatic Heart: S1 and S2 reg, no murmurs, rubs or gallop Lungs: Clear, no crackles or wheeze, Abd: soft, non tender, non distended, normal BS Ext: Right knee in splint,no clubbing, no cyanosis Neuro: AAO x 3, no focal signs, moves all ext Psych:Normal mood - Constitutional Vitals: Temp Pulse Resp BP Pulse Ox 98.2 F 107 H 18 117/67 93 10/08/18 11:45 10/08/18 11:46 10/08/18 11:45 10/08/18 11:45 10/08/18 11:46 Plan Diet: low fat, low cholesterol, low salt Special Instructions: physical therapy, home health RN Durable Medical Equipment Needed Upon Discharge: Walker-Rolling, Bedside Commode (3 in 1) Additional Instructions: 1.Follow up with PCP in 1 week. 2.Follow up with Ron Barrett in 1 week. 3.Follow up with Leslie Rob in 2 weeks Follow up with: LUIS VEGA MD [Primary Care Provider] - 3-5 Days Prescriptions: Apixaban [Eliquis] 2.5 mg PO BID #28 tablet oxyCODONE /ACETAMINOPHEN [Percocet 5/325 mg] 1 tab PO Q6H PRN #20 tablet PRN Reason: Pain, Moderate (4-6) Cholecalciferol Vit D3 [Vitamin D3 1,000 UNIT TAB] 2,000 unit PO QDAY #30 tablet
== END 2018-10-08 17:55 | disposition home health service (06) | DRG 493 ==
LOC: ED 22:09 → 3A 10-04 04:00 → 3B-SURG 10-04 08:29
PROVIDERS: ADMIT Internal Medicine; ATTEND Internal Medicine
PROC: 0QSG04Z Reposition Right Tibia with Internal Fixation Device, Open Approach (ICD-10-PCS; principal; 2018-10-05)
PROC: 0QUG0KZ Supplement Right Tibia with Nonautologous Tissue Substitute, Open Approach (ICD-10-PCS; 2018-10-05)
DX: S82.141A Displaced bicondylar fracture of right tibia, initial encounter for closed fracture (principal); R71.0 Precipitous drop in hematocrit; S82.831A Other fracture of upper and lower end of right fibula, initial encounter for closed fracture; N18.3 Chronic kidney disease, stage 3 (moderate); Z79.4 Long term (current) use of insulin; Z79.899 Other long term (current) drug therapy; W07.XXXA Fall from chair, initial encounter; Y93.89 Activity, other specified; Y92.89 Other specified places as the place of occurrence of the external cause; Y99.8 Other external cause status; Z82.49 Family history of ischemic heart disease and other diseases of the circulatory system; Z90.710 Acquired absence of both cervix and uterus; I12.9 Hypertensive chronic kidney disease with stage 1 through stage 4 chronic kidney disease, or unspecified chronic kidney disease; E11.22 Type 2 diabetes mellitus with diabetic chronic kidney disease; Z88.8 Allergy status to other drugs, medicaments and biological substances; E78.5 Hyperlipidemia, unspecified; H40.9 Unspecified glaucoma; E11.43 Type 2 diabetes mellitus with diabetic autonomic (poly)neuropathy; K31.84 Gastroparesis; K21.9 Gastro-esophageal reflux disease without esophagitis; E55.9 Vitamin D deficiency, unspecified; E11.319 Type 2 diabetes mellitus with unspecified diabetic retinopathy without macular edema
CPT/HCPCS: 36415; 80048; 81001; 81025; 82962; 85025; 85027; 85610; 85730; 94760; 96374; 96375; G0378; A9270-GY; C1713; C1769; J1170; J1650; J1815; J1885; J2250; J2270; J2405; J2704; J7030; J7050

== ENCOUNTER 2018-10-09 13:32 | Emergency (ER) | payer MEDICARE ==
[2018-10-09] MEDS ORDERED: NACL 0.9% 1000 ML IV ONE (14:09)
--- NOTE | 2018-10-09 14:32 | Emergency Department Report ---
ED Fever HPI - General Chief Complaint: Extremity Injury, Lower Stated Complaint: R KNEE PAIN Time Seen by Provider: 10/09/18 14:26 Source: patient, family Exam Limitations: no limitations - History of Present Illness Initial Comments: Patient is a 43-year-old female that since emergency with fever. Was seen by her home health today and found to be tachycardic and hyperglycemic. Patient sent to the ER for further O's and treatment. Patient recently had a tibial plateau fracture repair. Patient states she had a knee surgery 3 days ago. Patient states she had a fever at discharge from the hospital. The patient states she's been taking Percocet, oxycodone with Tylenol. Patient states her fever responds well to the Tylenol but comes back to medially after. Patient d enies cough. Patient denies chills. Patient denies shortness of breath. Patient denies abdominal pain. Patient denies pain at the surgical site. Patient states she is having extra bleeding at the surgical site but no extra pain. Patient denies discharge from the surgical site. Timing/Duration: getting worse Fever Severity/Quality: greater than 100.5 F Fever Therapy OPERATIONS COORDINATOR: prescription medications, Tylenol Associated Symptoms: denies symptoms. denies: abdominal pain, chest pain, confusion, cough, diaphoresis, headache, muscle aches, nausea/vomiting, rash, shortness of breath, sore throat, stiff neck, syncope, weakness ED Review of Systems ROS: Stated complaint: R KNEE PAIN Other details as noted in HPI Constitutional: fever. denies: chills Eyes: denies: eye pain, eye discharge, vision change ENT: denies: ear pain, throat pain Respiratory: denies: cough, shortness of breath, wheezing Cardiovascular: denies: chest pain, palpitations Endocrine: no symptoms reported Gastrointestinal: denies: abdominal pain, nausea, diarrhea Genitourinary: denies: urgency, dysuria, discharge Musculoskeletal: denies: back pain, joint swelling, arthralgia Skin: denies: rash, lesions Neurological: denies: headache, weakness, paresthesias Psychiatric: denies: anxiety, depression Hematological/Lymphatic: denies: easy bleeding, easy bruising ED Past Medical Hx - Past Medical History Previous Medical History?: Yes Hx Hypertension: Yes Hx Diabetes: Yes (x 26 yrs) Hx GERD: Yes Hx Liver Disease: Yes (H/O Hep A with elevated liver enzymes) Hx Renal Disease: Yes Hx HIV: No Additional medical history: Glaucoma - Surgical History Past Surgical History?: Yes Additional Surgical History: Left Eye. x3. Right Tib Fib - Family History Family history: no significant - Social History Smoking Status: Never Smoker Substance Use Type: Alcohol, Marijuana - Medications Home Medications: Home Medications Medication Instructions Recorded Confirmed Last Taken Type Adult Low Dose Aspirin EC 81 mg PO QAM 10/04/18 10/04/18 Unknown History Atorvastatin 20 mg PO QAM 10/04/18 10/04/18 Unknown History Famotidine [Pepcid] 20 mg PO BID 10/04/18 10/04/18 Unknown History Hydrochlorothiazide 12.5 mg PO QAM 10/04/18 10/04/18 Unknown History Lisinopril 10 mg PO QAM 10/04/18 10/04/18 Unknown History Norvasc 10 mg PO BID 10/04/18 10/04/18 Unknown History Multivitamin Tablet 1 tab PO QAM 10/04/18 10/04/18 Unknown History Reglan TAB 10 mg PO QAM 10/04/18 10/04/18 Unknown History Vitamin D3 1,000 UNIT TAB 2,000 units PO QAM 10/04/18 10/04/18 Unknown History Apixaban [Eliquis] 2.5 mg PO BID #28 tablet 10/08/18 Unknown Rx Cholecalciferol Vit D3 [Vitamin D3 2,000 unit PO QDAY #30 tablet 10/08/18 Unknown Rx 1,000 UNIT TAB] oxyCODONE /ACETAMINOPHEN [Percocet 1 tab PO Q6H PRN #20 tablet 10/08/18 Unknown Rx 5/325 mg] Iron Fum,Ps/Folic/Bcomp,C No.9 1 each PO DAILY 30 Days #30 capsule 10/09/18 Unknown Rx [Integra Plus Capsule] Sulfamethoxazole/Trimethoprim 1 each PO BID 10 Days #20 tablet 10/09/18 Unknown Rx [Bactrim DS TAB] ED Physical Exam - General Limitations: No Limitations General appearance: alert, in no apparent distress - Head Head exam: Present: atraumatic, normocephalic - Eye Eye exam: Present: normal appearance - ENT ENT exam: Present: mucous membranes moist - Neck Neck exam: Present: normal inspection - Respiratory Respiratory exam: Present: normal lung sounds bilaterally. Absent: respiratory distress - Cardiovascular Cardiovascular Exam: Present: regular rate, normal rhythm. Absent: systolic murmur, diastolic murmur, rubs, gallop - GI/Abdominal GI/Abdominal exam: Present: soft, normal bowel sounds - Extremities Exam Extremities exam: Present: normal inspection (except right knee has knee brace and surgical site. No discharge from surgical site) - Back Exam Back exam: Present: normal inspection - Neurological Exam Neurological exam: Present: alert, oriented X3 - Psychiatric Psychiatric exam: Present: normal affect, normal mood - Skin Skin exam: Present: warm, dry, intact, normal color. Absent: rash ED Course Vital Signs 10/09/18 10/09/18 10/09/18 13:54 14:00 15:00 Temperature 98.4 F Pulse Rate 115 H Respiratory 16 Rate Blood Pressure 132/87 132/87 128/78 Blood Pressure [Left] O2 Sat by Pulse 94 97 100 Oximetry 10/09/18 10/09/18 10/09/18 16:00 17:00 17:14 Temperature 98.4 F Pulse Rate 100 H Respiratory 18 Rate Blood Pressure 98/57 114/69 Blood Pressure 114/69 [Left] O2 Sat by Pulse 92 94 Oximetry - Reevaluation(s) Reevaluation #1: Discussed all results the patient. Patient is stable for discharge. Patient will be discharged home. Patient already has a history of anemia. Patient is currently taking vitamins. Patient will be given a new iron prescription. Patient instructed to continue all medications. Patient will be given antibiotics empirically. The patient was given Bactrim DS. Patient will need to follow-up with Dr. Diaz on Friday. Patient given return to ER instructions. Patient given discharge instructions. Patient voiced understanding of all instructions. 10/09/18 18:24 - Consultations Consultation #1: Discussed case with Dr. Diaz and Dr. Diaz recommends oral antibiotics and discharged home. He states that the fever is most likely secondary to the in flammatory response due to the cutting of the bone. 10/09/18 16:26 ED Medical Decision Making - Lab Data Result diagrams: 10/09/18 15:06 10/09/18 15:06 - Medical Decision Making Patient is a 43-year-old female that presents emergency room with complaints of fever. Patient found to have a postoperative fever. Patient recently had a knee surgery. Discussed case with Dr. Diaz, the patient's orthopedist. Dr. Diaz recommends patient be discharged with oral antibiotics and have the patient follow-up with him in 2 days. Patient given discharge instructions. Patient stable for discharge. Patient will be discharged home. Patient had labs in the ER and were essentially unremarkable except for CK D and anemia. Patient is artery on by mouth iron and vitamins. Patient instructed to continue her medications and vitamins. Patient had a chest x-ray was negative for acute findings. Patient's urine was negative. Heart rate improved with fluids. Patient's dressing change prior to discharge. A new sterile dressing placed on surgical site. Surgical site was examined initially upon arrival and is within normal limits and no signs of infection. - Differential Diagnosis postop fever. Tachycardia Critical care attestation.: If time is entered above; I have spent that time in minutes in the direct care of this critically ill patient, excluding procedure time. ED Disposition Clinical Impression: Postoperative fever, Tachycardia, Dehydration Anemia Qualifiers: Anemia type: unspecified type Qualified Code(s): D64.9 - Anemia, unspecified CKD (chronic kidney disease) Qualifiers: Chronic kidney disease stage: unspecified stage Qualified Code(s): N18.9 - Chronic kidney disease, unspecified Disposition: TO HOME OR SELFCARE Is pt being admited?: No Does the pt Need Aspirin: No Condition: Stable Instructions: Fever in Adults (ED) Additional Instructions: Patient to follow-up primary care in 2-3 days. Patient to follow up with orthopedist in 2-3 days. Patient to return to ER if condition worsens. Patient to continue all medications. Patient to take meds as directed. Patient to start antibiotics. Patient to increase water. Patient to rest. Patient to avoid weightbearing. Patient to monitor her surgical site. Patient to continue wound care as directed by orthopedics. Prescriptions: Sulfamethoxazole/Trimethoprim [Bactrim DS TAB] 1 each PO BID 10 Days #20 tablet Iron Fum,Ps/Folic/Bcomp,C No.9 [Integra Plus Capsule] 1 each PO DAILY 30 Days #30 capsule Referrals: PRIMARY [facility] [Referring] - 2-3 Days YENNY DIAZ MD [Staff Physician] - 2-3 Days Time of Disposition: 18:28
[2018-10-09 15:35] LABS: Basophils # (Auto) 0.1 K/mm3 (0.0-0.1); Basophils % (Auto) 0.9 % (0.0-1.8); Eosinophils # (Auto) 0.1 K/mm3 (0.0-0.4); Eosinophils % (Auto) 0.5 % (0.0-4.3); Hematocrit 27.4 % (30.3-42.9); Hemoglobin 9.2 gm/dl (10.1-14.3); Lymphocytes # (Auto) 1.6 K/mm3 (1.2-5.4); Mean Corpuscular HGB Conc 34 % (30-34); Mean Corpuscular Volume 81 fl (79-97); Platelet Count 319 K/mm3 (140-440); Red Blood Count 3.38 M/mm3 (3.65-5.03)
[2018-10-09 15:45] LABS: INR 1.1 (0.87-1.13)
[2018-10-09 15:46] LABS: Partial Thromboplastin Time 37.2 Sec. (24.2-36.6)
[2018-10-09 15:51] LABS: Albumin 2.6 g/dL (3.9-5); BUN/Creatinine Ratio 8; Blood Urea Nitrogen 11 mg/dL (7-17); Calcium 9.1 mg/dL (8.4-10.2); Hemolysis Index 3
[2018-10-09 16:01] LABS: Alanine Aminotransferase < 5 units/L (7-56)
[2018-10-09] MEDS ORDERED: MAXIPIME/NS 2 GM/100 ML 2 GM/100 ML BAG IV ONE (16:02)
[2018-10-09 16:50] LABS: Bilirubin,Urine NEG (Negative); Blood,Urine SM (Negative); Color,Urine Yellow (Yellow); Mucus,Urine FEW /HPF
--- NOTE | 2018-10-09 18:08 | XRay Report ---
PROCEDURE: XR CHEST 1V AP TECHNIQUE: Frontal portable view of the chest HISTORY: fever COMPARISONS: None FINDINGS: There is bilateral hypoinflation with crowding of bronchovascular structures. There is no definite evidence of focal infiltrate and no evidence of pneumothorax or pleural fluid co llection. The cardiac silhouette appears to be enlarged. This may be exaggerated by hypoinflation and portable technique. The thoracic aorta and bony structures are unremarkable. Visualization of detail of the thoracic spin e is limited. IMPRESSION: 1. Hypoinflation. 2. No definite evidence of pulmonary infiltrate. 3. Enlarged cardiac silhouette. If there is a persistent clinical concern of an acute intrathoracic process, PA and lateral views of the chest or CT chest may be helpful. This document is electronically signed by Betty Mathews MD., October 09 2018 06:06:04 PM ET
[2018-10-09 19:10] VITALS: BP 120/63
== END 2018-10-09 19:32 | disposition home or self-care (01) ==
LOC: ED 13:32
DX: E86.0 Dehydration (principal); D64.9 Anemia, unspecified; R00.0 Tachycardia, unspecified; I12.9 Hypertensive chronic kidney disease with stage 1 through stage 4 chronic kidney disease, or unspecified chronic kidney disease; E11.22 Type 2 diabetes mellitus with diabetic chronic kidney disease; N18.9 Chronic kidney disease, unspecified; K21.9 Gastro-esophageal reflux disease without esophagitis; Z79.4 Long term (current) use of insulin; Z88.1 Allergy status to other antibiotic agents
CPT/HCPCS: 36415; 71045; 80053; 81001; 82140; 82805; 82962; 84703; 85025; 85610; 85730; 87040; 87086; 96361; 96365; 96366; 99284; J0692; J7030

== ENCOUNTER 2019-05-23 11:16 | Emergency (ER) | payer MEDICARE ==
[2019-05-23 11:32] VITALS: BP 116/79
--- NOTE | 2019-05-23 11:33 | Event Note ---
ED Screening Note ED Screening Note: itchy/dry throat 2 days dry cough congestion rhinorrhea no ear pain PMHx HTN, DM, CKD, glaucoma, HLD allergy cipro non smoker
--- NOTE | 2019-05-23 11:43 | Emergency Department Report ---
- General Chief Complaint: Upper Respiratory Infection Stated Complaint: COUGHING/RUNNY NOSE/SORE THROAT Time Seen by Provider: 05/23/19 11:27 Source: patient Mode of arrival: Ambulatory Limitations: No Limitations - History of Present Illness Initial Comments: pt is a 44 yo female who presents to the ED with c/o a itchy/dry throat that began 2 days ago. she has associated dry cough, nasal congestion, rhinorrhea. the patient denies any ear pain, fever or productive cough. she denies any SOB or CP. PMHx HTN, DM, CKD, glaucoma, HLD. allergy cipro. she is a non smoker. - Related Data Home Medications Medication Instructions Recorded Confirmed Last Taken Adult Low Dose Aspirin EC 81 mg PO QAM 10/04/18 10/04/18 Unknown Atorvastatin 20 mg PO QAM 10/04/18 10/04/18 Unknown Famotidine [Pepcid] 20 mg PO BID 10/04/18 10/04/18 Unknown Hydrochlorothiazide 12.5 mg PO QAM 10/04/18 10/04/18 Unknown Lisinopril 10 mg PO QAM 10/04/18 10/04/18 Unknown Norvasc 10 mg PO BID 10/04/18 10/04/18 Unknown Multivitamin Tablet 1 tab PO QAM 10/04/18 10/04/18 Unknown Reglan TAB 10 mg PO QAM 10/04/18 10/04/18 Unknown Vitamin D3 1,000 UNIT TAB 2,000 units PO QAM 10/04/18 10/04/18 Unknown Previous Rx's Medication Instructions Recorded Last Taken Type Apixaban [Eliquis] 2.5 mg PO BID #28 tablet 10/08/18 Unknown Rx Cholecalciferol Vit D3 [Vitamin D3 2,000 unit PO QDAY #30 tablet 10/08/18 Unknown Rx 1,000 UNIT TAB] oxyCODONE /ACETAMINOPHEN [Percocet 1 tab PO Q6H PRN #20 tablet 10/08/18 Unknown Rx 5/325 mg] Iron Fum,Ps/Folic/Bcomp,C No.9 1 each PO DAILY 30 Days #30 capsule 10/09/18 Unknown Rx [Integra Plus Capsule] Sulfamethoxazole/Trimethoprim 1 each PO BID 10 Days #20 tablet 10/09/18 Unknown Rx [Bactrim DS TAB] Cetirizine HCl [Zyrtec 10mg tab] 10 mg PO DAILY #14 tablet 05/23/19 Unknown Rx Fluticasone [Flonase] 1 spray NS QDAY #1 bottle 05/23/19 Unknown Rx guaiFENesin ER [Mucinex ER] 600 mg PO BID #14 tablet.er 05/23/19 Unknown Rx Allergies Allergy/AdvReac Type Severity Reaction Status Date / Time ciprofloxacin [From Cipro] Allergy SOB, hives Verified 12/27/17 17:12 ciprofloxacin HCl Allergy SOB, hives Verified 12/27/17 17:12 [From Cipro] ED Review of Systems ROS: Stated complaint: COUGHING/RUNNY NOSE/SORE THROAT Other details as noted in HPI Comment: All other systems reviewed and negative ED Past Medical Hx - Past Medical History Previous Medical History?: Yes Hx Hypertension: Yes Hx Diabetes: Yes (x 26 yrs) Hx GERD: Yes Hx Liver Disease: Yes (H/O Hep A with elevated liver enzymes) Hx Renal Disease: Yes Hx HIV: No Additional medical history: Glaucoma - Surgical History Past Surgical History?: Yes Additional Surgical History: Left Eye. x3. Right Tib Fib - Social History Smoking Status: Never Smoker Substance Use Type: None - Medications Home Medications: Home Medications Medication Instructions Recorded Confirmed Last Taken Type Adult Low Dose Aspirin EC 81 mg PO QAM 10/04/18 10/04/18 Unknown History Atorvastatin 20 mg PO QAM 10/04/18 10/04/18 Unknown History Famotidine [Pepcid] 20 mg PO BID 10/04/18 10/04/18 Unknown History Hydrochlorothiazide 12.5 mg PO QAM 10/04/18 10/04/18 Unknown History Lisinopril 10 mg PO QAM 10/04/18 10/04/18 Unknown History Norvasc 10 mg PO BID 10/04/18 10/04/18 Unknown History Multivitamin Tablet 1 tab PO QAM 10/04/18 10/04/18 Unknown History Reglan TAB 10 mg PO QAM 10/04/18 10/04/18 Unknown History Vitamin D3 1,000 UNIT TAB 2,000 units PO QAM 10/04/18 10/04/18 Unknown History Apixaban [Eliquis] 2.5 mg PO BID #28 tablet 10/08/18 Unknown Rx Cholecalciferol Vit D3 [Vitamin D3 2,000 unit PO QDAY #30 tablet 10/08/18 Unknown Rx 1,000 UNIT TAB] oxyCODONE /ACETAMINOPHEN [Percocet 1 tab PO Q6H PRN #20 tablet 10/08/18 Unknown Rx 5/325 mg] Iron Fum,Ps/Folic/Bcomp,C No.9 1 each PO DAILY 30 Days #30 capsule 10/09/18 Unknown Rx [Integra Plus Capsule] Sulfamethoxazole/Trimethoprim 1 each PO BID 10 Days #20 tablet 10/09/18 Unknown Rx [Bactrim DS TAB] Cetirizine HCl [Zyrtec 10mg tab] 10 mg PO DAILY #14 tablet 05/23/19 Unknown Rx Fluticasone [Flonase] 1 spray NS QDAY #1 bottle 05/23/19 Unknown Rx guaiFENesin ER [Mucinex ER] 600 mg PO BID #14 tablet.er 05/23/19 Unknown Rx ED Physical Exam - General Limitations: No Limitations General appearance: alert, in no apparent distress - Head Head exam: Present: atraumatic, normocephalic - Eye Eye exam: Present: normal appearance, PERRL, EOMI. Absent: periorbital swelling, periorbital tenderness - ENT ENT exam: Present: normal orophraynx, mucous membranes moist, TM's normal bilaterally, normal external ear exam, other (mucus drainage bilateral nares, no sinus TTP bilaterally ) - Respiratory Respiratory exam: Present: normal lung sounds bilaterally. Absent: respiratory distress, wheezes, rales, rhonchi, stridor, chest wall tenderness, accessory muscle use, decreased breath sounds, prolonged expiratory - Cardiovascular Cardiovascular Exam: Present: regular rate, normal rhythm, normal heart sounds. Absent: systolic murmur, diastolic murmur, rubs, gallop - Neurological Exam Neurological exam: Present: alert, oriented X3 - Psychiatric Psychiatric exam: Present: normal affect, normal mood - Skin Skin exam: Present: warm, dry, intact ED Course Vital Signs 05/23/19 11:28 Temperature 98.9 F Pulse Rate 101 H Respiratory 20 Rate Blood Pressure 116/79 O2 Sat by Pulse 100 Oximetry ED Medical Decision Making - Medical Decision Making pt is a 44 yo female who presents to the ED with c/o a itchy/dry throat that began 2 days ago. she has associated dry cough, nasal congestion, rhinorrhea. the patient denies any ear pain, fever or productive cough. she denies any SOB or CP. PMHx HTN, DM, CKD, glaucoma, HLD. allergy cipro. she is a non smoker. vitals are stable, very mild tachycardia at 101 which appears to be baseline for patient from previous vitals. on exam: mucus drainage bilateral nares, no sinus TTP bilaterally, normal oropharynx, normal TMs and canals bilaterally, breath sounds are clear bilaterally without w/r/r. symptoms and examination most likely consistent with viral URI. discussed symptomatic treatment and supportive care with pt. pt given prescription for flonase, zyrtec, and mucinex. advised pt it is very important you increase your fluid intake over the next several days. take medication as prescribed. do warm salt water gargles, drink warm tea, eat warm soup broth, get plenty of rest. may take tylenol for any discomfort. please see your primary care doctor in the next 2-3 days to have a full reexamination. return to the emergency room immediately for any new or worsening symptoms. - Differential Diagnosis PNA, URI, sinusitis, pharyngitis, otitis, viral syndrome Critical care attestation.: If time is entered above; I have spent that time in minutes in the direct care of this critically ill patient, excluding procedure time. ED Disposition Clinical Impression: Upper respiratory infection Qualifiers: URI type: unspecified URI Qualified Code(s): J06.9 - Acute upper respiratory infection, unspecified Disposition: DC-01 TO HOME OR SELFCARE Is pt being admited?: No Does the pt Need Aspirin: No Condition: Stable Instructions: Upper Respiratory Infection (ED) Additional Instructions: it is very important you increase your fluid intake over the next several days. take medication as prescribed. do warm salt water gargles, drink warm tea, eat warm soup broth, get plenty of rest. may take tylenol for any discomfort. please see your primary care doctor in the next 2-3 days to have a full reexamination. return to the emergency room immediately for any new or worsening symptoms. Prescriptions: Fluticasone [Flonase] 1 spray NS QDAY #1 bottle guaiFENesin ER [Mucinex ER] 600 mg PO BID #14 tablet.er Cetirizine HCl [Zyrtec 10mg tab] 10 mg PO DAILY #14 tablet Referrals: your, primary care doctor [Other] - 2-3 Days Time of Disposition: 11:36 Print Language: ARMENIAN
== END 2019-05-23 13:26 | disposition home or self-care (01) ==
LOC: ED 11:16
DX: J06.9 Acute upper respiratory infection, unspecified (principal); I10 Essential (primary) hypertension; E11.9 Type 2 diabetes mellitus without complications; K21.9 Gastro-esophageal reflux disease without esophagitis; Z98.890 Other specified postprocedural states; Z79.899 Other long term (current) drug therapy; Z88.1 Allergy status to other antibiotic agents
CPT/HCPCS: 99282

== ENCOUNTER 2019-09-11 13:00 | Emergency (ER) | payer MEDICARE ==
[2019-09-11 13:05] VITALS: BP 142/93
--- NOTE | 2019-09-11 16:31 | Emergency Department Report ---
[facility] Chief Complaint: Eye Problems Stated Complaint: RED EYE AND SORE Time Seen by Provider: 09/11/19 16:25 Duration: 2 Days Side: Left Severity: mild Symptoms: Yes Eye Itching, Yes Eye Redness, Yes Mucous Drainage, Yes Purulent Drainage, Yes Blurred Vision, No H/O Allergic Rhinitis, No Contact Lens Use, No Trauma, No Fever ED Review of Systems ROS: Stated complaint: RED EYE AND SORE Other details as noted in HPI Comment: All other systems reviewed and negative ED Past Medical Hx - Past Medical History Hx Hypertension: Yes Hx Diabetes: Yes (x 26 yrs) Hx GERD: Yes Hx Liver Disease: Yes (H/O Hep A with elevated liver enzymes) Hx Renal Disease: Yes Hx HIV: No Additional medical history: Glaucoma - Surgical History Additional Surgical History: Left Eye. x3. Right Tib Fib - Social History Smoking Status: Never Smoker Substance Use Type: Alcohol, Prescribed - Medications Home Medications: Home Medications Medication Instructions Recorded Confirmed Last Taken Type Adult Low Dose Aspirin EC 81 mg PO QAM 10/04/18 10/04/18 Unknown History Atorvastatin 20 mg PO QAM 10/04/18 10/04/18 Unknown History Famotidine [Pepcid] 20 mg PO BID 10/04/18 10/04/18 Unknown History Hydrochlorothiazide 12.5 mg PO QAM 10/04/18 10/04/18 Unknown History Lisinopril 10 mg PO QAM 10/04/18 10/04/18 Unknown History Norvasc 10 mg PO BID 10/04/18 10/04/18 Unknown History Multivitamin Tablet 1 tab PO QAM 10/04/18 10/04/18 Unknown History Reglan TAB 10 mg PO QAM 10/04/18 10/04/18 Unknown History Vitamin D3 1,000 UNIT TAB 2,000 units PO QAM 10/04/18 10/04/18 Unknown History Apixaban [Eliquis] 2.5 mg PO BID #28 tablet 10/08/18 Unknown Rx Cholecalciferol Vit D3 [Vitamin D3 2,000 unit PO QDAY #30 tablet 10/08/18 Unknown Rx 1,000 UNIT TAB] oxyCODONE /ACETAMINOPHEN [Percocet 1 tab PO Q6H PRN #20 tablet 10/08/18 Unknown Rx 5/325 mg] Iron Fum,Ps/Folic/Bcomp,C No.9 1 each PO DAILY 30 Days #30 capsule 10/09/18 Un known Rx [Integra Plus Capsule] Sulfamethoxazole/Trimethoprim 1 each PO BID 10 Days #20 tablet 10/09/18 Unknown Rx [Bactrim DS TAB] Cetirizine HCl [Zyrtec 10mg tab] 10 mg PO DAILY #14 tablet 05/23/19 Unknown Rx Fluticasone [Flonase] 1 spray NS QDAY #1 bottle 05/23/19 Unknown Rx guaiFENesin ER [Mucinex ER] 600 mg PO BID #14 tablet.er 05/23/19 Unknown Rx Tobramycin 0.3% [Tobrex] 1 applicatio OS Q8HR #1 tube 09/11/19 Unknown Rx [facility] Exam - Exam General: Vital signs noted. No distress. Alert and acting appropriately. Eye Exam: Left Injection, Left Mucous Discharge, Neither Chemosis, Neither Abnormal Pupil, Neither EOMI, Neither Eye Foreign Body, Neither Lid Foreign Bod y, Neither Purulent Discharge, Neither Fluorescein Uptake, Neither Fluorescein Uptake (slit lamp), Neither Cell/Flare (slit lamp), Neither Corneal Edema, Neither Photophobia HEENT: Yes Nasal Congestion, No Pharyngeal Erythema Remainder of HEENT: Normal Lungs: Yes Clear Lung Sounds, Yes Good Air Exchange, Yes Use of Accessory Muscles, No Wheezes, No Stridor, No Cough, No Nasal Flaring, No Retractions ED Course Vital Signs 09/11/19 13:03 Temperature 98.1 F Pulse Rate 108 H Respiratory 14 Rate Blood Pressure 142/93 [Right] O2 Sat by Pulse 98 Oximetry Critical care attestation.: If time is entered above; I have spent that time in minutes in the direct care of this critically ill patient, excluding procedure time. ED Disposition Clinical Impression: Conjunctivitis Disposition: DC-01 TO HOME OR SELFCARE Is pt being admited?: No Does the pt Need Aspirin: No Condition: Stable Instructions: Conjunctivitis (ED) Prescriptions: Tobramycin 0.3% [Tobrex] 1 applicatio OS Q8HR #1 tube Referrals: [facility] [Provider Group] - 3-5 Days
== END 2019-09-11 17:05 | disposition home or self-care (01) ==
LOC: ED 13:00
DX: H10.9 Unspecified conjunctivitis (principal); I10 Essential (primary) hypertension; E11.9 Type 2 diabetes mellitus without complications; K21.9 Gastro-esophageal reflux disease without esophagitis; Z79.899 Other long term (current) drug therapy; Z88.8 Allergy status to other drugs, medicaments and biological substances
CPT/HCPCS: 99282

== ENCOUNTER 2021-01-24 19:19 | Emergency (ER) | payer MEDICARE ==
[2021-01-24 23:48] VITALS: BP 131/80
[2021-01-25] MEDS ORDERED: ACETAMINOPHEN 500 MG TAB PO ONE (03:47)
[2021-01-25] MEDS ORDERED: predniSONE 20 MG TAB PO ONE (03:47)
--- NOTE | 2021-02-15 00:46 | Emergency Department Report ---
ED General Adult HPI - General Chief complaint: Extremity Injury, Lower Stated complaint: SWOLLEN RT LEG/ANKLE Time Seen by Provider: 01/25/21 01:20 Source: patient Mode of arrival: Ambulatory Limitations: No Limitations - History of Present Illness Initial comments: 46-year-old female presents emerged part with complaint of swelling to the right lower extremity x1 week unknown etiology she reports minimal pain no numbness or tingling. She reports no chest pain or shortness of breath reports no trauma no numbness, no tingling -: Gradual Radiation: non-radiation Severity scale (0 -10): 2 Quality: dull Improves with: none Worsens with: none Treatments Prior to Arrival: none - Related Data Home Medications Medication Instructions Recorded Confirmed Last Taken Adult Low Dose Aspirin EC 81 mg PO QAM 10/04/18 10/04/18 Unknown Atorvastatin 20 mg PO QAM 10/04/18 10/04/18 Unknown Famotidine [Pepcid] 20 mg PO BID 10/04/18 10/04/18 Unknown Hydrochlorothiazide 12.5 mg PO QAM 10/04/18 10/04/18 Unknown Lisinopril 10 mg PO QAM 10/04/18 10/04/18 Unknown Norvasc 10 mg PO BID 10/04/18 10/04/18 Unknown Multivitamin Tablet 1 tab PO QAM 10/04/18 10/04/18 Unknown Reglan TAB 10 mg PO QAM 10/04/18 10/04/18 Unknown Vitamin D3 1,000 UNIT TAB 2,000 units PO QAM 10/04/18 10/04/18 Unknown Previous Rx's Medication Instructions Recorded Last Taken Type Apixaban [Eliquis] 2.5 mg PO BID #28 tablet 10/08/18 Unknown Rx Cholecalciferol Vit D3 [Vitamin D3 2,000 unit PO QDAY #30 tablet 10/08/18 Unknown Rx 1,000 UNIT TAB] oxyCODONE /ACETAMINOPHEN [Percocet 1 tab PO Q6H PRN #20 tablet 10/08/18 Unknown Rx 5/325 mg] Iron Fum,Ps/Folic/Bcomp,C No.9 1 each PO DAILY 30 Days #30 capsule 10/09/18 Unknown Rx [Integra Plus Capsule] Sulfamethoxazole/Trimethoprim 1 each PO BID 10 Days #20 tablet 10/09/18 Unknown Rx [Bactrim DS TAB] Cetirizine HCl [Zyrtec 10mg tab] 10 mg PO DAILY #14 tablet 05/23/19 Unknown Rx Fluticasone [Flonase] 1 spray NS QDAY #1 bottle 05/23/19 Unknown Rx guaiFENesin ER [Mucinex ER] 600 mg PO BID #14 tablet.er 05/23/19 Unknown Rx Tobramycin 0.3% [Tobrex] 1 applicatio OS Q8HR #1 tube 09/11/19 Unknown Rx Compression Socks, Large 1 each MC DAILY #1 each 01/25/21 Unknown Rx [Lifestylecomfort Socks] traMADoL [Ultram] 50 mg PO Q6HR PRN #20 tablet 01/25/21 Unknown Rx Allergies Allergy/AdvReac Type Severity Reaction Status Date / Time ciprofloxacin [From Cipro] Allergy SOB, hives Verified 12/27/17 17:12 ciprofloxacin HCl Allergy SOB, hives Verified 12/27/17 17:12 [From Cipro] ibuprofen [From Motrin] AdvReac Vomiting Verified 01/25/21 03:48 ED Review of Systems ROS: Stated complaint: SWOLLEN RT LEG/ANKLE Other details as noted in HPI Comment: All other systems reviewed and negative ED Past Medical Hx - Past Medical History Previous Medical History?: Yes Hx Hypertension: Yes Hx Diabetes: Yes (x 26 yrs) Hx GERD: Yes Hx Liver Disease: Yes (H/O Hep A with elevated liver enzymes) Hx Renal Disease: Yes Hx HIV: No Additional medical history: Glaucoma - Surgical History Past Surgical History?: Yes Additional Surgical History: Left Eye. x3. Right Tib Fib - Social History Smoking Status: Never Smoker Substance Use Type: Alcohol, Prescribed - Medications Home Medications: Home Medications Medication Instructions Recorded Confirmed Last Taken Type Adult Low Dose Aspirin EC 81 mg PO QAM 10/04/18 10/04/18 Unknown History Atorvastatin 20 mg PO QAM 10/04/18 10/04/18 Unknown History Famotidine [Pepcid] 20 mg PO BID 10/04/18 10/04/18 Unknown History Hydrochlorothiazide 12.5 mg PO QAM 10/04/18 10/04/18 Unknown History Lisinopril 10 mg PO QAM 10/04/18 10/04/18 Unknown History Norvasc 10 mg PO BID 10/04/18 10/04/18 Unknown History Multivitamin Tablet 1 tab PO QAM 10/04/18 10/04/18 Unknown History Reglan TAB 10 mg PO QAM 10/04/18 10/04/18 Unknown History Vitamin D3 1,000 UNIT TAB 2,000 units PO QAM 10/04/18 10/04/18 Unknown History Apixaban [Eliquis] 2.5 mg PO BID #28 tablet 10/08/18 Unknown Rx Cholecalciferol Vit D3 [Vitamin D3 2,000 unit PO QDAY #30 tablet 10/08/18 Unknown Rx 1,000 UNIT TAB] oxyCODONE /ACETAMINOPHEN [Percocet 1 tab PO Q6H PRN #20 tablet 10/08/18 Unknown Rx 5/325 mg] Iron Fum,Ps/Folic/Bcomp,C No.9 1 each PO DAILY 30 Days #30 capsule 10/09/18 Unknown Rx [Integra Plus Capsule] Sulfamethoxazole/Trimethoprim 1 each PO BID 10 Days #20 tablet 10/09/18 Unknown Rx [Bactrim DS TAB] Cetirizine HCl [Zyrtec 10mg tab] 10 mg PO DAILY #14 tablet 05/23/19 Unknown Rx Fluticasone [Flonase] 1 spray NS QDAY #1 bottle 05/23/19 Unknown Rx guaiFENesin ER [Mucinex ER] 600 mg PO BID #14 tablet.er 05/23/19 Unknown Rx Tobramycin 0.3% [Tobrex] 1 applicatio OS Q8HR #1 tube 09/11/19 Unknown Rx Compression Socks, Large 1 each MC DAILY #1 each 01/25/21 Unknown Rx [Lifestylecomfort Socks] traMADoL [Ultram] 50 mg PO Q6HR PRN #20 tablet 01/25/21 Unknown Rx ED Physical Exam - General Limitations: No Limitations General appearance: alert, in no apparent distress - Head Head exam: Present: atraumatic, normocephalic - Eye Eye exam: Present: normal appearance, PERRL, EOMI Pupils: Present: normal accommodation - ENT ENT exam: Present: normal exam, normal orophraynx, mucous membranes moist, TM's normal bilaterally - Neck Neck exam: Present: normal inspection - Respiratory Respiratory exam: Present: normal lung sounds bilaterally. Absent: respiratory distress, wheezes, rales - Cardiovascular Cardiovascular Exam: Present: regular rate, normal rhythm. Absent: systolic murmur, diastolic murmur, rubs, gallop - GI/Abdominal GI/Abdominal exam: Present: soft, normal bowel sounds - Extremities Exam Extremities exam: Present: normal inspection, full ROM, normal capillary refill, pedal edema, joint swelling. Absent: calf tenderness (No Homans' sign no cord sign, cap refill is brisk) - Back Exam Back exam: Present: normal inspection. Absent: CVA tenderness (R), CVA tenderness (L) - Neurological Exam Neurological exam: Present: alert, oriented X3, CN II-XII intact, normal gait - Psychiatric Psychiatric exam: Present: normal affect, normal mood - Skin Skin exam: Present: warm, dry, intact, normal color. Absent: rash ED Course Vital Signs 01/24/21 01/25/21 23:48 04:37 Temperature 98.3 F Pulse Rate 80 70 Respiratory 16 17 Rate Blood Pressure 131/80 [Right] O2 Sat by Pulse 99 100 Oximetry Critical care attestation.: If time is entered above; I have spent that time in minutes in the direct care of this critically ill patient, excluding procedure time. ED Disposition Clinical Impression: Leg pain Disposition: HOME / SELF CARE / HOMELESS Is pt being admited?: No Does the pt Need Aspirin: No Condition: Stable Instructions: Acute Knee Pain, Adult, How to Use Cold Therapy, Peripheral Edema Additional Instructions: You have been evaluated emergency department today for atraumatic knee and lower leg pain. Your evaluation today is not showing us any signs of an acute abnormality is no instability which require further intervention at this time. Ronnie wrap was applied to your knee ambulatory please utilize ice rest and elevation as tolerated. Recommend taking Tylenol and intolerable anti- inflammatories as directed in the bottle and follow through with the orthopedic provider in 3 days. Return to emerge department for especially worsening or uncontrollable pain, numbness, tingling, weakness in your legs, inability to walk or worsening swelling or redness or any other concerning symptoms Prescriptions: Compression Socks, Large [Lifestylecomfort Socks] 1 each MC DAILY #1 each traMADoL [Ultram] 50 mg PO Q6HR PRN #20 tablet PRN Reason: Pain Referrals: YENNY MIRANDA MD [Staff Physician] - 3-5 Days KARTHIKEYAN BURR DO [Primary Care Provider] - 3-5 Days
== END 2021-01-25 04:37 | disposition home or self-care (01) ==
LOC: ED 19:19
DX: M79.89 Other specified soft tissue disorders (principal)
CPT/HCPCS: 99282; J7512

== ENCOUNTER 2021-09-25 11:07 | Emergency (ER) | payer MEDICARE ==
[2021-09-25] MEDS ORDERED: SODIUM CHLORIDE 0.9% 1000 ML 1,000 ML IV ONE ×2 (11:47→14:24)
[2021-09-25] MEDS ORDERED: ONDANSETRON 4 MG/2 ML INJ IV ONE (11:47)
[2021-09-25 12:06] LABS: Basophils % (Auto) 0.3 % (0.0-1.8); Eosinophils % (Auto) 0.1 % (0.0-4.3); Hematocrit 41.5 % (30.3-42.9); Lymphocytes # (Auto) 0.9 K/mm3 (1.2-5.4); Lymphocytes % (Auto) 10.7 % (13.4-35.0); Mean Corpuscular HGB Conc 31 % (30-34); Mean Corpuscular Volume 89 fl (79-97); Monocytes # (Auto) 0.5 K/mm3 (0.0-0.8); Monocytes % (Auto) 5.6 % (0.0-7.3); Platelet Count 327 K/mm3 (140-440); Red Blood Count 4.67 M/mm3 (3.65-5.03)
[2021-09-25 12:26] LABS: Albumin 3.6 g/dL (3.9-5); Calcium 9.5 mg/dL (8.4-10.2)
--- NOTE | 2021-09-25 13:12 | XRay Report ---
CHEST 2 VIEWS INDICATION / CLINICAL INFORMATION: weakness. COMPARISON: None available. FINDINGS: SUPPORT DEVICES: None. HEART / MEDIASTINUM: No significant abnormality. LUNGS / PLEURA: No significant pulmonary or pleural abnormality. No pneumothorax. ADDITIONAL FINDINGS: No significant additional findings. IMPRESSION: 1. No acute findings. Signer Name: Fly Yost MD Signed: 09/25/2021 1:08 PM Workstation Name: [id number]
--- NOTE | 2021-09-25 13:31 | Emergency Department Report ---
ED N/V/D HPI - General Chief complaint: Nausea/Vomiting/Diarrhea Stated complaint: VOMING/FEVER/BODY ACHES PUI?: No Time Seen by Provider: 09/25/21 11:46 Source: patient Mode of arrival: Ambulatory Limitations: No Limitations - History of Present Illness Initial comments: 46 yo comes to ER with nv. History gastroparesis. No abd pain. No diarrhea. no fever. no chills. no cp or sob. Pt also has DM with insulin pump in place MD complaint: nausea, vomiting -: Gradual, days(s) Associated Abdominal Pain: No Severity: mild Consistency: intermittent Improves with: none Worsens with: eating Associated Symptoms: denies other symptoms, loss of appetite, nausea/vomiting. denies: myalgias, chest pain, cough, diaphoresis, fever/chills, headaches, malaise, rash, dysuria, shortness of breath, syncope, weakness - Related Data Home Medications Medication Instructions Recorded Confirmed Last Taken Adult Low Dose Aspirin EC 81 mg PO QAM 10/04/18 10/04/18 Unknown Atorvastatin 20 mg PO QAM 10/04/18 10/04/18 Unknown Famotidine [Pepcid] 20 mg PO BID 10/04/18 10/04/18 Unknown Lisinopril 10 mg PO QAM 10/04/18 10/04/18 Unknown Norvasc 10 mg PO BID 10/04/18 10/04/18 Unknown Multivitamin Tablet 1 tab PO QAM 10/04/18 10/04/18 Unknown Reglan TAB 10 mg PO QAM 10/04/18 10/04/18 Unknown Vitamin D3 1,000 UNIT TAB 2,000 units PO QAM 10/04/18 10/04/18 Unknown Previous Rx's Medication Instructions Recorded Last Taken Type Cholecalciferol Vit D3 [Vitamin D3 2,000 unit PO QDAY #30 tablet 10/08/18 Unknown Rx 1,000 UNIT TAB] Ondansetron [Zofran Odt] 4 mg PO Q8HR PRN #10 tab.rapdis 09/25/21 Unknown Rx Allergies Allergy/AdvReac Type Severity Reaction Status Date / Time ciprofloxacin [From Cipro] Allergy SOB, hives Verified 09/25/21 11:41 ciprofloxacin HCl Allergy SOB, hives Verified 09/25/21 11:41 [From Cipro] ibuprofen [From Motrin] AdvReac Vomiting Verified 09/25/21 11:41 ED Review of Systems ROS: Stated complaint: VOMING/FEVER/BODY ACHES Other details as noted in HPI Comment: All other systems reviewed and negative ED Past Medical Hx - Past Medical History Previous Medical History?: Yes Hx Hypertension: Yes Hx Diabetes: Yes (x 26 yrs) Hx GERD: Yes Hx Liver Disease: Yes (H/O Hep A with elevated liver enzymes) Hx Renal Disease: Yes Hx HIV: No Additional medical history: Glaucoma- GASTROPARESIS- BASELINE TACHYCARDIA (st) - Surgical History Past Surgical History?: Yes Additional Surgical History: Left Eye. x3. Right Tib Fib - Family History Family history: no significant - Social History Smoking Status: Never Smoker Substance Use Type: Alcohol, Prescribed - Medications Home Medications: Home Medications Medication Instructions Recorded Confirmed Last Taken Type Adult Low Dose Aspirin EC 81 mg PO QAM 10/04/18 10/04/18 Unknown History Atorvastatin 20 mg PO QAM 10/04/18 10/04/18 Unknown History Famotidine [Pepcid] 20 mg PO BID 10/04/18 10/04/18 Unknown History Lisinopril 10 mg PO QAM 10/04/18 10/04/18 Unknown History Norvasc 10 mg PO BID 10/04/18 10/04/18 Unknown History Multivitamin Tablet 1 tab PO QAM 10/04/18 10/04/18 Unknown History Reglan TAB 10 mg PO QAM 10/04/18 10/04/18 Unknown History Vitamin D3 1,000 UNIT TAB 2,000 units PO QAM 10/04/18 10/04/18 Unknown History Cholecalciferol Vit D3 [Vitamin D3 2,000 unit PO QDAY #30 tablet 10/08/18 Unknown Rx 1,000 UNIT TAB] Ondansetron [Zofran Odt] 4 mg PO Q8HR PRN #10 tab.rapdis 09/25/21 Unknown Rx ED Physical Exam - General Limitations: No Limitations General appearance: alert, in no apparent distress - Head Head exam: Present: atraumatic, normocephalic - Eye Eye exam: Present: normal appearance - ENT ENT exam: Present: mucous membranes moist - Neck Neck exam: Present: normal inspection - Respiratory Respiratory exam: Present: normal lung sounds bilaterally. Absent: respiratory distress - Cardiovascular Cardiovascular Exam: Present: regular rate, normal rhythm. Absent: systolic murmur, diastolic murmur, rubs, gallop - GI/Abdominal GI/Abdominal exam: Present: soft, normal bowel sounds - Extremities Exam Extremities exam: Present: normal inspection - Back Exam Back exam: Present: normal inspection - Neurological Exam Neurological exam: Present: alert, oriented X3 - Psychiatric Psychiatric exam: Present: normal affect, normal mood - Skin Skin exam: Present: warm, dry, intact, normal color. Absent: rash ED Course Vital Signs 09/25/21 09/25/21 11:40 16:18 Temperature 98.4 F Pulse Rate 118 H 98 H Respiratory 18 16 Rate Blood Pressure 113/74 Blood Pressure 118/76 [Right] O2 Sat by Pulse 98 100 Oximetry - Reevaluation(s) Reevaluation #1: 09/25/21 14:14 HOME RX LASIX LINZESS LISINOPRIL ASA NORVASC EZETIBIDE COLCHICINE STATIN EYE DROPS VIT D PEPCID REGLAN VALACYC. INSULIN PUMP Reevaluation #2: 09/25/21 14:23 HAS BEEN IN ER OVER 4 HOURS WITH NO N/V ED Medical Decision Making - Lab Data Result diagrams: 09/25/21 11:50 09/25/21 11:50 - Radiology Data Radiology results: report reviewed, image reviewed nap - Medical Decision Making Vital Signs 09/25/21 11:40 Temperature 98.4 F Pulse Rate 118 H Respiratory 18 Rate Blood Pressure 113/74 O2 Sat by Pulse 98 Oximetry Labs 09/25/21 09/25/21 09/25/21 11:50 11:50 11:50 WBC 8.7 RBC 4.67 Hgb 13.0 Hct 41.5 MCV 89 MCH 28 MCHC 31 RDW 13.0 L Plt Count 327 Lymph % (Auto) 10.7 L [place] % (Auto) 5.6 Eos % (Auto) 0.1 Baso % (Auto) 0.3 Lymph # (Auto) 0.9 L [place] # (Auto) 0.5 Eos # (Auto) 0.0 Baso # (Auto) 0.0 Seg Neutrophils % 83.3 H Seg Neutrophils # 7.2 VBG pH Sodium 137 Potassium 4.2 Chloride 100.0 Carbon Dioxide 22 Anion Gap 19 BUN 21 H Creatinine 1.5 H Estimated GFR 45 BUN/Creatinine Ratio 14 Glucose 245 H Ketones Quantitative Calcium 9.5 Total Bilirubin 0.50 AST 31 ALT 30 Alkaline Phosphatase 134 H Total Protein 8.1 Albumin 3.6 L Albumin/Globulin Ratio 0.8 Lipase 21 HCG, Qual Negative 09/25/21 09/25/21 12:10 12:10 WBC RBC Hgb Hct MCV MCH MCHC RDW Plt Count Lymph % (Auto) [place] % (Auto) Eos % (Auto) Baso % (Auto) Lymph # (Auto) [place] # (Auto) Eos # (Auto) Baso # (Auto) Seg Neutrophils % Seg Neutrophils # VBG pH 7.327 Sodium Potassium Chloride Carbon Dioxide Anion Gap BUN Creatinine Estimated GFR BUN/Creatinine Ratio Glucose Ketones Quantitative Negative Calcium Total Bilirubin AST ALT Alkaline Phosphatase Total Protein Albumin Albumin/Globulin Ratio Lipase HCG, Qual 1425 2ND L NS VS PO CHALLENGE DC HOME NOTE UA SENT LATE - WILL CALL HER IF POS Vital Signs 09/25/21 09/25/21 11:40 16:18 Temperature 98.4 F Pulse Rate 118 H 98 H Respiratory 18 16 Rate Blood Pressure 113/74 Blood Pressure 118/76 [Right] O2 Sat by Pulse 98 100 Oximetry Lab Results 09/25/21 09/25/21 09/25/21 Range/Units 11:50 11:50 11:50 WBC 8.7 (4.5-11.0) K/mm3 RBC 4.67 (3.65-5.03) M/mm3 Hgb 13.0 (10.1-14.3) gm/dl Hct 41.5 (30.3-42.9) % MCV 89 (79-97) fl MCH 28 (28-32) pg MCHC 31 (30-34) % RDW 13.0 L (13.2-15.2) % Plt Count 327 (140-440) K/mm3 Lymph % (Auto) 10.7 L (13.4-35.0) % [place] % (Auto) 5.6 (0.0-7.3) % Eos % (Auto) 0.1 (0.0-4.3) % Baso % (Auto) 0.3 (0.0-1.8) % Lymph # (Auto) 0.9 L (1.2-5.4) K/mm3 [place] # (Auto) 0.5 (0.0-0.8) K/mm3 Eos # (Auto) 0.0 (0.0-0.4) K/mm3 Baso # (Auto) 0.0 (0.0-0.1) K/mm3 Seg Neutrophils % 83.3 H (40.0-70.0) % Seg Neutrophils # 7.2 (1.8-7.7) K/mm3 VBG pH (7.320-7.420) Sodium 137 (137-145) mmol/L Potassium 4.2 (3.6-5.0) mmol/L Chloride 100.0 (98-107) mmol/L Carbon Dioxide 22 (22-30) mmol/L Anion Gap 19 mmol/L BUN 21 H (7-17) mg/dL Creatinine 1.5 H (0.6-1.2) mg/dL Estimated GFR 45 ml/min BUN/Creatinine Ratio 14 % Glucose 245 H (65-100) mg/dL Ketones Quantitative (Negative) Calcium 9.5 (8.4-10.2) mg/dL Total Bilirubin 0.50 (0.1-1.2) mg/dL AST 31 (5-40) units/L ALT 30 (7-56) units/L Alkaline Phosphatase 134 H (35-129) units/L Total Protein 8.1 (6.3-8.2) g/dL Albumin 3.6 L (3.9-5) g/dL Albumin/Globulin Ratio 0.8 % Lipase 21 (13-60) units/L HCG, Qual Negative (Negative) Urine Color (Yellow) Urine Turbidity (Clear) Urine pH (5.0-7.0) Ur Specific [place] (1.003-1.030) Urine Protein (Negative) mg/dL Urine Glucose (UA) (Negative) mg/dL Urine Ketones (Negative) mg/dL Urine Blood (Negative) Urine Nitrite (Negative) Urine Bilirubin (Negative) Urine Urobilinogen (<2.0) mg/dL Ur Leukocyte Esterase (Negative) Urine WBC (Auto) (0.0-6.0) /HPF Urine RBC (Auto) (0.0-6.0) /HPF U Epithel Cells (Auto) (0-13.0) /HPF Urine Bacteria (Auto) (Negative) /HPF Urine Mucus /HPF 09/25/21 09/25/21 09/25/21 Range/Units 12:10 12:10 Unknown WBC (4.5-11.0) K/mm3 RBC (3.65-5.03) M/mm3 Hgb (10.1-14.3) gm/dl Hct (30.3-42.9) % MCV (79-97) fl MCH (28-32) pg MCHC (30-34) % RDW (13.2-15.2) % Plt Count (140-440) K/mm3 Lymph % (Auto) (13.4-35.0) % [place] % (Auto) (0.0-7.3) % Eos % (Auto) (0.0-4.3) % Baso % (Auto) (0.0-1.8) % Lymph # (Auto) (1.2-5.4) K/mm3 [place] # (Auto) (0.0-0.8) K/mm3 Eos # (Auto) (0.0-0.4) K/mm3 Baso # (Auto) (0.0-0.1) K/mm3 Seg Neutrophils % (40.0-70.0) % Seg Neutrophils # (1.8-7.7) K/mm3 VBG pH 7.327 (7.320-7.420) Sodium (137-145) mmol/L Potassium (3.6-5.0) mmol/L Chloride (98-107) mmol/L Carbon Dioxide (22-30) mmol/L Anion Gap mmol/L BUN (7-17) mg/dL Creatinine (0.6-1.2) mg/dL Estimated GFR ml/min BUN/Creatinine Ratio % Glucose (65-100) mg/dL Ketones Quantitative Negative (Negative) Calcium (8.4-10.2) mg/dL Total Bilirubin (0.1-1.2) mg/dL AST (5-40) units/L ALT (7-56) units/L Alkaline Phosphatase (35-129) units/L Total Protein (6.3-8.2) g/dL Albumin (3.9-5) g/dL Albumin/Globulin Ratio % Lipase (13-60) units/L HCG, Qual (Negative) Urine Color Yellow (Yellow) Urine Turbidity Clear (Clear) Urine pH 5.0 (5.0-7.0) Ur Specific [place] 1.014 (1.003-1.030) Urine Protein 100 mg/dl (Negative) mg/dL Urine Glucose (UA) Neg (Negative) mg/dL Urine Ketones Neg (Negative) mg/dL Urine Blood Neg (Negative) Urine Nitrite Neg (Negative) Urine Bilirubin Neg (Negative) Urine Urobilinogen 2.0 (<2.0) mg/dL Ur Leukocyte Esterase Neg (Negative) Urine WBC (Auto) 4.0 (0.0-6.0) /HPF Urine RBC (Auto) 2.0 (0.0-6.0) /HPF U Epithel Cells (Auto) 4.0 (0-13.0) /HPF Urine Bacteria (Auto) 1+ (Negative) /HPF Urine Mucus Few /HPF pt dc from ER with dc plan of care including diet, meds, activity and follow up. She verbalizes understanding. At time of d/c pt is ambulatory, taking po and nad. - Differential Diagnosis RO DKA/GASTROPARESSIS/GASTROENTERITIS/HHNK Critical care attestation.: If time is entered above; I have spent that time in minutes in the direct care of this critically ill patient, excluding procedure time. ED Disposition Clinical Impression: Nausea & vomiting Qualifiers: Vomiting type: unspecified Qualified Code(s): R11.2 - Nausea with vomiting, unspecified Hyperglycemia due to type 2 diabetes mellitus Qualifiers: Diabetes mellitus usp insulin use: with usp use Qualified Code(s): E11.65 - Type 2 diabetes mellitus with hyperglycemia; Z79.4 - intermediate manager (current) use of insulin CKD (chronic kidney disease) stage 3, GFR 30-59 ml/min Qualifiers: Chronic kidney disease stage 3 subtype: stage 3a (GFR 45-59) Qualified Code(s): N18.31 - Chronic kidney disease, stage 3a Disposition: 01 HOME / SELF CARE / HOMELESS Is pt being admited?: No Does the pt Need Aspirin: No Condition: Stable Instructions: Nausea and Vomiting, Adult, [id number], Diabetes Mellitus Type 2 in Adults (ED) Additional Instructions: CONTINUE HOME MEDS CONTROL YOUR BLOOD GLUCOSE FOLLOW UP WITH PCP IN 48 H FOR RECHECK BLAND DIET ZOFRAN FOR NAUSEA Prescriptions: Ondansetron [Zofran Odt] 4 mg PO Q8HR PRN #10 tab.rapdis PRN Reason: Vomiting Referrals: URMILA HERNANDEZ MD [Primary Care Provider] - 3-5 Days Time of Disposition: 14:13
[2021-09-25 14:27] LABS: Bacteria,Urine 1+ /HPF (Negative); Bilirubin,Urine NEG (Negative); Blood,Urine NEG (Negative); Color,Urine Yellow (Yellow); Mucus,Urine FEW /HPF
[2021-09-25 16:19] VITALS: BP 118/76
== END 2021-09-25 16:19 | disposition home or self-care (01) ==
LOC: ED 11:07
DX: R11.2 Nausea with vomiting, unspecified (principal); E11.65 Type 2 diabetes mellitus with hyperglycemia; I12.9 Hypertensive chronic kidney disease with stage 1 through stage 4 chronic kidney disease, or unspecified chronic kidney disease; N18.30 Chronic kidney disease, stage 3 unspecified; K21.9 Gastro-esophageal reflux disease without esophagitis; K76.9 Liver disease, unspecified; N28.9 Disorder of kidney and ureter, unspecified; Z79.899 Other long term (current) drug therapy; Z98.890 Other specified postprocedural states; Z88.4 Allergy status to anesthetic agent; Z91.09 Other allergy status, other than to drugs and biological substances
CPT/HCPCS: 36415; 71046; 80053; 81001; 82010; 82805; 83690; 84703; 85025; 96361; 96374; 99284; J7030; Q0162

== ENCOUNTER 2022-02-14 09:30 | Emergency (ER) | payer MEDICARE ==
[2022-02-14 09:35] VITALS: BP 132/83
== END 2022-02-14 11:07 | disposition left against medical advice (07) ==
LOC: ED 09:30
DX: R50.9 Fever, unspecified (principal); R11.10 Vomiting, unspecified; Z53.21 Procedure and treatment not carried out due to patient leaving prior to being seen by health care provider